=== PATIENT | male | born 1955 | race Caucasian/White ===

== ENCOUNTER 2022-10-11 00:40 | Day surgery (SDC) | payer OTHER, SELFPAY ==
[2022-10-03 10:01] VITALS: BMI 35.4
[2022-10-11 06:48] VITALS: BP 157/97; PULSE 18; RESP 18; TEMP 36.6; O2SAT 96
[2022-10-11 06:49] LABS: Glucose Point of Care 171 mg/dl (65-105)
[2022-10-11] MEDS: LACTATED RINGERS 1,000 ML 150 ML IV CONT (06:50)
--- NOTE | 2022-10-11 07:32 | WPDANESEPPF ---
Anes - Initial Pre Proc Eval Procedure: Operation Date: 10/11/22 08:00 Proposed Procedures p Screening Colonoscopy - Armin Portillo MD Date/Time: 10/11/22 07:32 Surgeon: Armin Portillo MD Pre Op Diagnosis: Hx of colon polyp Patient Data Age: 67 Gender: M Height: 1.75 m Weight: 105.6 kg Last Vital Signs Temp 36.6 C 10/11/22 06:48 Pulse 18 L 10/11/22 06:48 Resp 18 10/11/22 06:48 BP 157/97 H 10/11/22 06:48 Pulse Ox 96 10/11/22 06:48 O2 Del Method Room Air 10/11/22 06:48 Allergies Allergy/AdvReac Type Severity Reaction Status Date / Time No Known Allergies Allergy Verified 10/11/22 06:44 Home Medications Medication Instructions Recorded Confirmed Type fenofibrate 160 mg tablet 160 mg PO DAILY #90 tabs 02/27/22 10/11/22 Rx testosterone 20.25 mg/1.25 gram 1 pump topical DAILY #75 grams 02/27/22 10/11/22 Rx (1.62 %) transdermal gel pump metformin 500 mg tablet,extended 1,000 mg PO DAILY #180 tabs 05/01/22 10/11/22 Rx release 24 hr hydrochlorothiazide 12.5 mg tablet 12.5 mg PO DAILY #90 tabs 08/23/22 10/11/22 Rx allopurinol 300 mg tablet 300 mg PO DAILY 90 days #90 tabs 09/05/22 10/11/22 Rx insulin glargine 100 unit/mL (3 See Rx Instructions subcut 09/05/22 10/11/22 Rx mL) subcutaneous pen (Lantus .COMPLEX #45 mL Solostar U-100 Insulin) perindopril erbumine 8 mg tablet 16 mg PO DAILY 90 days #180 tabs 09/05/22 10/11/22 Rx atorvastatin 80 mg tablet 80 mg PO DAILY 90 days #90 tabs 09/08/22 10/11/22 Rx Laboratory Tests 10/11/22 06:46 POC Capillary Glucose 171 mg/dl H mg/dl (65-105) Patient hx anesthesia problems: none Family hx anesthesia problems: none Results Review: All pre-operative results and documents have been reviewed as part of the pre-operative evaluation. [facility] Family History Family History Mother Diabetes mellitus Alcoholism Sibling Alcoholism Diabetes mellitus Hypertension Father Hypertension Social History Social History Smoking status: Never smoker Second hand tobacco smoke exposure: No Alcohol intake: current Drinks per week: 12 Substance use: unknown Substance use type: does not use Lack of Transportation: No Lack of Food: Never True Current Housing: I Have Housing Concerned About Future Housing: No Difficulty Paying Gas/Electric Bills: No Difficulty Paying for Meds: YES Currently Unemployed: No Education: High School Diploma/GED Difficulty w/ Childcare or Family Care: No Living arrangements: alone Spiritual care concerns: No Anes - Eval Final PreProcedure Day of Procedure 10/11/22 07:32 Patient weight: obese Heart: regular rate and rhythm Lungs: clear to auscultation Airway: Mallampati scale class II Neurological: alert and oriented Last oral intake: >/= 8 hours ASA classification: III Emergent: no Anesthetic plan: proceed Anesthesia type and monitoring: general GIVS and standard monitoring Results Review: All pre-operative results and documents have been reviewed as part of the pre-operative evaluation. Informed Consent: The patient's anesthetic plan and its attendant risks and benefits were discussed with the patient/family/POA. Questions were solicited and answers provided to the satisfaction of the patient/family/POA.
--- NOTE | 2022-10-11 07:49 | PM.HPGS ---
History of Present Illness History of Present Illness Consent: Risks, benefits, and alternatives have been discussed and questions answered. Patient agrees to proceed with procedure. Chief complaint: Hx of colon polyp Narrative: Sohan Marshall is a 67 year old male with colon polyp 5 years ago Review of Systems Constitutional: Constitutional: Denies headache(s) and Denies weakness Eyes: Eyes: Denies blurry vision ENT: Reports Normal hearing present, Denies headache(s) and Denies neck pain Cardiovascular: Cardiovascular: Denies chest pain and Denies dyspnea Respiratory: Respiratory: Denies dyspnea Gastrointestinal: Gastrointestinal: Reports no additional gastrointestinal complaints Genitourinary: Genitourinary: Denies dysuria Musculoskeletal: Musculoskeletal: Denies neck pain Integumentary/Breasts: Skin/Breast: Denies dry skin Neurologic: Reports Normal hearing present, Denies headache(s) and Denies weakness Psychiatric: Psychiatric: Denies anxiety Endocrine: Endocrine: Denies change in body appearance Hematologic/Lymphatic: Hematologic/Lymphatic: Denies easy bleeding Allergic/Immunologic: Allergic/Immunologic: Denies urticaria PMFSH Past Medical History Medical History (Updated 10/11/22 @ 07:49 by Armin Portillo MD) Colon polyp Family History Family History Mother Diabetes mellitus Alcoholism Sibling Alcoholism Diabetes mellitus Hypertension Father Hypertension Social History Social History Smoking status: Never smoker Second hand tobacco smoke exposure: No Alcohol intake: current Drinks per week: 12 Substance use: unknown Substance use type: does not use Lack of Transportation: No Lack of Food: Never True Current Housing: I Have Housing Concerned About Future Housing: No Difficulty Paying Gas/Electric Bills: No Difficulty Paying for Meds: YES Currently Unemployed: No Education: High School Diploma/GED Difficulty w/ Childcare or Family Care: No Living arrangements: alone Spiritual care concerns: No Meds Home Medications and Allergies Home Medications Medication Instructions Recorded Confirmed Type fenofibrate 160 mg tablet 160 mg PO DAILY #90 tabs 02/27/22 10/11/22 Rx testosterone 20.25 mg/1.25 gram 1 pump topical DAILY #75 grams 02/27/22 10/11/22 Rx (1.62 %) transdermal gel pump metformin 500 mg tablet,extended 1,000 mg PO DAILY #180 tabs 05/01/22 10/11/22 Rx release 24 hr hydrochlorothiazide 12.5 mg tablet 12.5 mg PO DAILY #90 tabs 08/23/22 10/11/22 Rx allopurinol 300 mg tablet 300 mg PO DAILY 90 days #90 tabs 09/05/22 10/11/22 Rx insulin glargine 100 unit/mL (3 See Rx Instructions subcut 09/05/22 10/11/22 Rx mL) subcutaneous pen (Lantus .COMPLEX #45 mL Solostar U-100 Insulin) perindopril erbumine 8 mg tablet 16 mg PO DAILY 90 days #180 tabs 09/05/22 10/11/22 Rx atorvastatin 80 mg tablet 80 mg PO DAILY 90 days #90 tabs 09/08/22 10/11/22 Rx Allergies Allergy/AdvReac Type Severity Reaction Status Date / Time No Known Allergies Allergy Verified 10/11/22 06:44 Vital Signs Vital Signs - 24 hr 10/11/22 06:48 Temperature 97.8 F Pulse Rate 18 L Respiratory Rate 18 Blood Pressure 157/97 H Pulse Oximetry 96 Oxygen Delivery Room Air Exam Const: General: comfortable and no acute distress HENMT: Face/Nose/Sinus: Normal nares present Eyes: General: appearance normal, both eyes and all related structures Neck: Neck: no JVD Resp: Auscultation: clear to auscultation bilaterally Cardio: Rate: regular rate Rhythm: regular rhythm GI: Inspection: non-distended GI Palp: Yes Soft to palpation Skin: General skin exam: normal color Neuro: General: gait normal Speech: normal speech Extrem: General: normal to inspection Psych: Mental Status: mental status grossly normal Asses
[2022-10-11 08:11] VITALS: BP 110/72; PULSE 87; RESP 20; O2SAT 95
[2022-10-11 08:21] VITALS: BP 121/77; PULSE 80; RESP 17; O2SAT 95
[2022-10-11 08:31] VITALS: BP 139/79; PULSE 81; RESP 22; O2SAT 96
== END 2022-10-11 08:39 | disposition home or self-care (01) ==
PROVIDERS: PCP Physician Assistant; Visit Provider Internal Medicine Gastroenterology
PROC: 0DJD8ZZ Inspection of Lower Intestinal Tract, Via Natural or Artificial Opening Endoscopic (ICD-10-PCS; CPT 45378; principal; 2022-10-11 08:00)
DX: Z12.11 Encounter for screening for malignant neoplasm of colon (principal); D12.3 Benign neoplasm of transverse colon; K57.30 Diverticulosis of large intestine without perforation or abscess without bleeding; K64.8 Other hemorrhoids; Z79.4 Long term (current) use of insulin; Z79.84 Long term (current) use of oral hypoglycemic drugs; E66.9 Obesity, unspecified; Z68.34 Body mass index [BMI] 34.0-34.9, adult
CPT/HCPCS: 45385; 82948; 88305; J2704; J7120

== ENCOUNTER 2024-09-03 00:12 | Day surgery (SDC) | payer OTHER, SELFPAY ==
[2024-08-26 11:51] VITALS: BMI 36.3
--- NOTE | 2024-08-26 12:29 | PC.NURSE ---
Report to the Outpatient Waiting Room, entrance under the green pavilion located off [facility], at time 6 AM on date _09/03/24 . Planned Procedure Time: __7:30 AM .? Time changes happen often and if your time is changed the preop area will call you the afternoon before. - You and your visitor will be asked to self-screen and do not enter if you have any COVID symptoms. Please call surgeon if you need to reschedule. - A mask is optional within the hospital at this time. Patients may have clear liquids (water, carbonated beverages, clear teas, apple juice) until 3 hours prior to surgery( 4:30 AM) with a maximum of 20 ounces. - No food from midnight until time of surgery and no smoking - Infants may have breast milk until 4 hours before surgery, infant formula 6 hours prior to surgery. - Children will be allowed to drink immediately following surgery.? If applicable, please bring a bottle or sippy cup to assist with drinking. Juice, water, soda, and popsicles are readily available.? For infants on formula, please bring formula the day of surgery.? Pacifiers are allowed. Take only the following medications with a SIP of water on the morning of surgery: _NONE DO NOT STOP ANY OF YOUR OTHER PRESCRIPTION MEDICATIONS PRIOR TO SURGERY EXCEPT THE FOLLOWING Medications to discontinue per physician __HOLD ALL VITAMINS AND SUPPLEMENTS 3 DAYS PRE OP. Date to take last dose__08/30/24 MAY TAKE TYLENOL IF NEEDED FOR PAIN Please no make-up, nail trinidadian, hairspray, perfume, deodorant, or body powder the day of surgery.? No jewelry (including any body piercings) or valuables the day of surgery, leave them at home.? Please take a shower or bath the night before, or the morning of, surgery with an antibacterial soap.? Wear comfortable, loose fitting clothing.? Children are encouraged to wear pajamas. - Jewelry must be removed prior to entering the operating room.? Rings and piercings that are not removed may be cut off. - The hospital will not accept responsibility for valuables.? - Please leave all valuables, including medications, at home the day of surgery. If you are going home after surgery, a licensed straddle truck driver must drive you home.? - NO public transportation without another adult if you receive anesthesia. - We recommend that an adult stay with you for 24 hours following discharge. - We also recommend that you do not drive, make important decision, drink alcoholic beverages, or take any drugs that were not prescribed by your health care provider for at least 24 hours after your discharge time. Follow any additional instructions given to you from your surgeon. VERBAL AND WRITTEN instructions given to _PATIENT AND SISTER RICKY and asked if any additional questions and then verbalized understanding. Patient advised to call surgeon office or pre surgery nurse liaison [phone] if any additional questions.
[2024-08-26 12:52] VITALS: BP 157/73; PULSE 65; RESP 18; TEMP 37.2; O2SAT 97
--- NOTE | 2024-09-02 07:19 | PM.IMHP ---
H&P: HPI History of Present Illness Date/Time: 09/02/24 07:19 Chief Complaint: Patient is the painful right knee due to osteoarthritis. She would like to consider knee replacement surgery she has failed conservative treatment. Review of Systems Musculoskeletal: Musculoskeletal: Reports arthralgias, Reports joint swelling and Reports stiffness PMFSH Past Medical History Medical History Colon polyp Diabetes mellitus Gout High cholesterol Hypertension Surgical History Surgical History History of cholecystectomy Family History Family History Mother Diabetes mellitus Alcoholism Sibling Alcoholism Diabetes mellitus Hypertension Father Hypertension Social History Social History Smoking status: Never smoker Second hand tobacco smoke exposure: No Additional smoking assessment comments: DENIES ANY FORM OF TOBACCO USE Alcohol intake: current Drinks per week: 12 Alcohol use details: BEER Substance use: unknown Substance use type: does not use Do You Feel Safe in your Home?: Yes Lack of Transportation: No Lack of Food: Never True Current Housing: I Have Housing Concerned About Future Housing: No Difficulty Paying Gas/Electric Bills: No Difficulty Paying for Meds: No Currently Unemployed: No Education: High School Diploma/GED Difficulty w/ Childcare or Family Care: No Living arrangements: alone Occupation/Education: retired Gender identity (if verbalized by the patient): Male Spiritual care concerns: No Meds Home Medications and Allergies Home Medications Medication Instructions Recorded Confirmed Type hydrochlorothiazide 12.5 mg tablet 12.5 mg PO DAILY #90 tabs 01/31/24 08/26/24 Rx fenofibrate 160 mg tablet 160 mg PO DAILY #90 tabs 02/05/24 08/26/24 Rx testosterone 1 pump topical DAILY #75 grams 02/11/24 08/26/24 Rx allopurinol 300 mg tablet 300 mg PO DAILY #90 tabs 02/17/24 08/26/24 Rx insulin glargine-yfgn 100 unit/mL 55 unit (0.55 mL) subcut QPM #50 mL 03/12/24 08/26/24 Rx (3 mL) subcutaneous pen (Semglee (insulin glargine-yfgn) Pen) metformin 500 mg tablet,extended 1,000 mg PO DAILY #180 tabs 04/17/24 08/26/24 Rx release 24 hr perindopril erbumine 8 mg tablet 16 mg PO DAILY #180 tabs 07/29/24 08/26/24 Rx semaglutide 0.25 mg or 0.5 mg (2 0.25 mg or 0.5 mg (2 mg/3 mL) Pen 08/13/24 08/26/24 Sample mg/3 mL) subcutaneous pen injector Injector#4 Samples (Ozempic) atorvastatin 80 mg tablet 80 mg PO DAILY #90 tabs 08/15/24 08/26/24 Rx acetaminophen 500 mg capsule 1,000 mg PO PRN PRN Pain 08/26/24 08/26/24 History ascorbic acid (vitamin C) 1,000 mg 1 g PO DAILY 08/26/24 08/26/24 History capsule Allergies Allergy/AdvReac Type Severity Reaction Status Date / Time No Known Allergies Allergy Verified 08/26/24 11:52 Exam Narrative: And range of motion of his knee from about 3-110 degrees grinding crepitus and pain varus deformity. Walks with an antalgic gait. Assessment and Plan Assessment and plan (1) Osteoarthritis of knees, bilateral: Code(s): M17.0 - Bilateral primary osteoarthritis of knee Status: Acute Assessment and Plan: Patient has osteoarthritis of his right knee. He has failed conservative treatment like to consider knee replacement surgery. We discussed treatment options in detail risks benefits limitations and alternatives. He understands and agrees will proceed per his request discussed.
[2024-09-03] VITALS (14 sets, daily range): BP systolic 145–177; BP diastolic 78–90; PULSE 68–86; RESP 11–18; TEMP 35.8–36.6; O2SAT 94–100
--- NOTE | ~2024-09-03 | XR_ITS ---
EXAMINATION: [id number] DATE: 09/03/2024 10:02 INDICATION: Postoperative evaluation following right total knee arthroplasty. TECHNIQUE: Anteroposterior and lateral views of the right knee were obtained. COMPARISON: None. FINDINGS: Right total knee arthroplasty with patellar resurfacing appears well seated and in near anatomic alig nment. No fractures identified. Anterior skin desmond and expected postoperative subcutaneous and in tra-articular gas. IMPRESSION: 1. Right total knee arthroplasty, negative for postoperative purposes. Reviewed, dictated and finalized at location [facility]
[2024-09-03] MEDS: LACTATED RINGERS 1,000 ML 30 ML IV CONT ×2 (06:30→09:50)
[2024-09-03] MEDS: ACETAMINOPHEN 500 MG TABLET 1000 MG PO (06:30)
[2024-09-03] MEDS: TRANEXAMIC ACID 1,000MG/ISO100 1,000 MG/100 ML BAG 200 MG IVPB (06:30)
--- NOTE | 2024-09-03 06:34 | WPDHPUPDATE1 ---
History and Physical Update Update Date/Time: 09/03/24 06:34 History and Physical has been reviewed, including an updated exam of the patient. There are NO changes in the patient's condition. Risks, benefits, and alternatives have been discussed and questions answered. Patient agrees to proceed with procedure.
[2024-09-03 06:49] LABS: Glucose Point of Care 123 mg/dl (65-105)
[2024-09-03] MEDS: VANCOMYCIN 1,500 MG/NS 500 ML 1,500 MG/500 ML BAG 250 MG IVPB (07:00)
--- NOTE | 2024-09-03 07:04 | P.PNAN_ITS ---
Anes - Initial Pre Proc Eval Procedure: Operation Date: 09/03/24 07:30 Proposed Procedures p Right Total Knee Arthroplasty - Sunny Mercado MD Date/Time: 09/03/24 07:04 Surgeon: Sunny Mercado MD Pre Op Diagnosis: OA right knee Patient Data Age: 69 Gender: M Height: 1.71 m Weight: 107 kg Last Vital Signs Temp 98.9 F 08/26/24 12:52 Pulse 65 08/26/24 12:52 Resp 18 08/26/24 12:52 BP 157/73 H 08/26/24 12:52 Pulse Ox 97 08/26/24 12:52 O2 Del Method Room Air 08/26/24 12:52 Allergies Allergy/AdvReac Type Severity Reaction Status Date / Time No Known Allergies Allergy Verified 09/03/24 06:50 Home Medications Medication Instructions Recorded Confirmed Type hydrochlorothiazide 12.5 mg tablet 12.5 mg PO DAILY #90 tabs 01/31/24 09/03/24 Rx fenofibrate 160 mg tablet 160 mg PO DAILY #90 tabs 02/05/24 09/03/24 Rx testosterone 1 pump topical DAILY #75 grams 02/11/24 09/03/24 Rx allopurinol 300 mg tablet 300 mg PO DAILY #90 tabs 02/17/24 09/03/24 Rx insulin glargine-yfgn 100 unit/mL 55 unit (0.55 mL) subcut QPM #50 mL 03/12/24 09/03/24 Rx (3 mL) subcutaneous pen (Semglee (insulin glargine-yfgn) Pen) metformin 500 mg tablet,extended 1,000 mg PO DAILY #180 tabs 04/17/24 09/03/24 Rx release 24 hr perindopril erbumine 8 mg tablet 16 mg PO DAILY #180 tabs 07/29/24 09/03/24 Rx semaglutide 0.25 mg or 0.5 mg (2 0.25 mg or 0.5 mg (2 mg/3 mL) Pen 08/13/2408/22 Sample mg/3 mL) subcutaneous pen injector Injector#4 Samples (Ozempic) atorvastatin 80 mg tablet 80 mg PO DAILY #90 tabs 08/15/24 09/03/24 Rx acetaminophen 500 mg capsule 1,000 mg PO PRN PRN Pain 08/26/24 09/03/24 History ascorbic acid (vitamin C) 1,000 mg 1 g PO DAILY 08/26/24 09/03/24 History capsule Laboratory Tests 09/03/24 06:35 POC Capillary Glucose 123 H mg/dl (65-105) Patient hx anesthesia problems: none Family hx anesthesia problems: none Results Review: All pre-operative results and documents have been reviewed as part of the pre- operative evaluation. [facility] Past Medical History Medical History Colon polyp Diabetes mellitus Gout High cholesterol Hypertension Surgical History Surgical History History of cholecystectomy Family History Family History Mother Diabetes mellitus Alcoholism Sibling Alcoholism Diabetes mellitus Hypertension Father Hypertension Social History Social History Smoking status: Never smoker Second hand tobacco smoke exposure: No Additional smoking assessment comments: DENIES ANY FORM OF TOBACCO USE Alcohol intake: current Drinks per week: 12 Alcohol use details: BEER Substance use: unknown Substance use type: does not use Do You Feel Safe in your Home?: Yes Lack of Transportation: No Lack of Food: Never True Current Housing: I Have Housing Concerned About Future Housing: No Difficulty Paying Gas/Electric Bills: No Difficulty Paying for Meds: No Currently Unemployed: No Education: High School Diploma/GED Difficulty w/ Childcare or Family Care: No Living arrangements: alone Occupation/Education: retired Gender identity (if verbalized by the patient): Male Spiritual care concerns: No Anes - Eval Final PreProcedure Day of Procedure 09/03/24 07:04 Patient weight: obese Heart: regular rate and rhythm Lungs: clear to auscultation Airway: Mallampati scale class II and special considerations (Missing teeth in posterior lower aspect. Underbite appreciated. ) Neurological: alert and oriented Last oral intake: >/= 8 hours ASA classification: III Emergent: no Anesthetic plan: proceed Anesthesia type and monitoring: general ETT and standard monitoring Results Review: All pre-operative results and documents have been reviewed as part of the pre- operative evaluation. HTN, hyperlipidemia, CKD stage 2, DM. Informed Consent: The patient's anesthetic plan and its attendant risks and benefits were discussed with the patient/family/POA. Questions were solicited and answers provided to the satisfaction of the patient/family/POA.
[2024-09-03] MEDS: ceFAZolin 2 GM/D5W 50 ML 2 GM/50 ML BAG IVPB ×3 (07:45→23:50)
[2024-09-03] MEDS: SODIUM CHLORIDE 0.9% IV 37.7 ML, MORPHINE SULFATE INJ (*CRX) 2 MG, ROPivacaine HCL 1% 2... INFILTRATE (08:05)
--- NOTE | 2024-09-03 09:06 | WPDANESPNB ---
Anes - Peripheral Nerve Block Date/Time: 09/03/24 09:06 I have discussed with the patient/family/POA the placement of a peripheral nerve block for post-operative pain management, including associated risks, benefits, complications, and side effects. Alternative methods of post-operative analgesia were detailed. Questions were solicited and answers provided to the satisfaction of the patient/family/POA. Time-Out: A pre-procedural Time-Out was completed immediately before starting the procedure and confirmed: Patient Identification, Site, Procedure, Patient Position and the Availability of Requisite Equipment. Clinical Indications: Acute post-operative pain management requested by the operative surgeon. Nerve Block Insertion Note Anes-nerve block: adductor canal right Patient position: supine Skin prep: chlorhexidine Needle: 22 gauge, stimulating, insulated echogenic needle. Needle length: 80 mm Injectate: other (Bupiv 0.5% 15 mls. ) Observations: tolerated well Complications: none Procedure start time:: 722 Procedure end time:: 728
[2024-09-03] MEDS: TRANEXAMIC ACID 1,000 MG/10 ML AMPUL 1000 MG IV PUSH (09:10)
[2024-09-03] MEDS: ceFAZolin SODIUM 1 GM VIAL 2 GM IV PUSH (09:11)
--- NOTE | 2024-09-03 09:17 | W.PM.PROC2 ---
Procedure Note - Detailed Date of Procedure 09/03/24 Pre-op Diagnosis Osteoarthritis right knee Post-op Diagnosis Same Procedure Performed RIGHT total knee arthroplasty Surgeon Sunny Mercado MD Anesthesia General Indications Pain and Arthritis Description of Procedure The patient was brought to operating room #7. A general anesthetic was administered. Placed on the operating table and sterilely prepped and draped in usual manner. A longitudinal incision was made. Tourniquet inflated to 300 mmHg for a total of 50 minutes. Dissection was carried down to the fascia. Medial parapatellar incision was made and the patella subluxated laterally. Patella cut from 25 to 15 mm and sized for a 37 mm button. The tibia was cut perpendicular to the long axis and femur cut in 5 degrees of valgus. An extra 2 mm of Femur was removed because of the flexion contracture. A 65 femur trialed. 71 tibia was felt to fit the best. The soft tissues balanced, hemostasis obtained. All [address], 71 tibia, 65 femur, 37 mm patella, and 10 mm poly. Motion was 0-125 degrees with good stability in both flexion and extension. The wound was closed with #2 Vicryl, 2-0 Vicryl and desmond. [employer] Estimated Blood Loss 200 Drains No Packing No Pathology None sent Complications No immediate complications Condition Stable Disposition PACU [facility] Billing Surgery - Charge Forward: Surgery Billing ([id number] TKA)
[2024-09-03] MEDS: fentaNYL CITRATE INJ (*CRX) 100 MCG/2 ML VIAL 25 MCG IV PUSH ×4 (10:25→10:35)
[2024-09-03 11:26] LABS: Glucose Point of Care 175 mg/dl (65-105)
[2024-09-03] MEDS: SODIUM CHLORIDE 0.9% IV 1,000 ML 125 ML IV CONT (11:53)
--- NOTE | 2024-09-03 11:57 | ADMGEN ---
This patient, Sohan Marshall, was admitted to 3 [facility] Surg Room 315-02. Patient/family oriented to hospital policies and general routines including ID bracelet, bed and alarms, visiting hours, pain management, procedures, bathroom and other care routines, personal items, smoking policy, room service/diet, and visiting hours. Information on how to activate the Rapid Response Team has been discussed. Patient/Family are encouraged to report perceived risks to care and to ask questions if they do not understand what they are told or what they should do.
[2024-09-03 12:01] LABS: Glucose Point of Care 186 mg/dl (65-105)
[2024-09-03] MEDS: traMADol HCL (*CRX) 50 MG TABLET PO ×2 (12:02→20:33)
--- NOTE | 2024-09-03 15:31 | P.CONIM_ITS ---
Assessment and Plan Assessment and plan (1) Diabetes mellitus: Qualifiers: Diabetes mellitus type: type 2 Diabetes mellitus penitentiary insulin use: with penitentiary use Diabetes mellitus complication status: with hyperglycemia Qualified Code(s): E11.65 - Type 2 diabetes mellitus with hyperglycemia; Z79.4 - watermaster (current) use of insulin Code(s): E11.9 - Type 2 diabetes mellitus without complications Status: Acute (2) Osteoarthritis of knees, bilateral: Code(s): M17.0 - Bilateral primary osteoarthritis of knee Status: Acute (3) Essential (primary) hypertension: Code(s): I10 - Essential (primary) hypertension Status: Acute Assessment and Plan: Hypertension with elevated blood pressure Blood pressure 165/85 Restart home medication and monitor Type 2 diabetes Continue Lantus 55 units daily and sliding scale insulin with Accu-Cheks. Lipitor. Severe osteoarthritis right knee Status post total knee replacement Continue p.r.n. pain control Prophylactic anticoagulation per Orthopedic DVT prophylaxis on rivaroxaban Patient is full code Surrogate decisionmaker is sister Cherie Pires [facility] Date of Consult Consult date: 09/03/24 Requesting Physician: Sunny Mercado MD Primary Care Provider: Jonny Block APRN Consult Narrative Reason for consult: Medical management. Narrative: Sohan Marshall is a 69 year old male with past medical history of hypertension, type 2 diabetes hyperlipidemia who was admitted directly today for right total knee replacement. Patient reported that he underwent outpatient workup when was admitted to the hospital today for total knee replacement. He has already undergone procedure. Denies any chest pain shortness over nausea vomiting abdominal pain no diarrhea no dysuria no focal symptoms prior to admission. And added time of this enc ounter patient was asymptomatic and denies any symptoms. Vital signs notable for temperature 96.6?, pulse rate 72, respiratory rate 18, blood pressure 165/85. Review of Systems Review of Systems: All other systems reviewed and negative except for the history above. [facility] Past Medical History Medical History Colon polyp Diabetes mellitus Gout High cholesterol Hypertension Surgical History Surgical History History of cholecystectomy Family History Family History Mother Diabetes mellitus Alcoholism Sibling Alcoholism Diabetes mellitus Hypertension Father Hypertension Social History Social History Smoking status: Never smoker Second hand tobacco smoke exposure: No Additional smoking assessment comments: DENIES ANY FORM OF TOBACCO USE Alcohol intake: current Drinks per week: 12 Alcohol use details: BEER Substance use: unknown Substance use type: does not use Do You Feel Safe in your Home?: Yes Lack of Transportation: No Lack of Food: Never True Current Housing: I Have Housing Concerned About Future Housing: No Difficulty Paying Gas/Electric Bills: No Difficulty Paying for Meds: No Currently Unemployed: No Education: High School Diploma/GED Difficulty w/ Childcare or Family Care: No Living arrangements: alone Occupation/Education: retired Gender identity (if verbalized by the patient): Male Spiritual care concerns: No Meds Home Medications and Allergies Home Medications Medication Instructions Recorded Confirmed Type hydrochlorothiazide 12.5 mg tablet 12.5 mg PO DAILY #90 tabs 01/31/24 09/03/24 Rx fenofibrate 160 mg tablet 160 mg PO DAILY #90 tabs 02/05/24 09/03/24 Rx testosterone 1 pump topical DAILY #75 grams 02/11/24 09/03/24 Rx allopurinol 300 mg tablet 300 mg PO DAILY #90 tabs 02/17/24 09/03/24 Rx insulin glargine-yfgn 100 unit/mL 55 unit (0.55 mL) subcut QPM #50 mL 03/12/24 09/03/24 Rx (3 mL) subcutaneous pen (Semglee (insulin glargine-yfgn) Pen) metformin 500 mg tablet,extended 1,000 mg PO DAILY #180 tabs 04/17/24 09/03/24 Rx release 24 hr perindopril erbumine 8 mg tablet 16 mg PO DAILY #180 tabs 07/29/24 09/03/24 Rx semaglutide 0.25 mg or 0.5 mg (2 0.25 mg or 0.5 mg (2 mg/3 mL) Pen 08/13/24 09/03/24 Sample mg/3 mL) subcutaneous pen injector Injector#4 Samples (Ozempic) atorvastatin 80 mg tablet 80 mg PO DAILY #90 tabs 08/15/24 09/03/24 Rx acetaminophen 500 mg capsule 1,000 mg PO PRN PRN Pain 08/26/24 09/03/24 History ascorbic acid (vitamin C) 1,000 mg 1 g PO DAILY 08/26/24 09/03/24 History capsule Allergies Allergy/AdvReac Type Severity Reaction Status Date / Time No Known Allergies Allergy Verified 09/03/24 06:50 Vital Signs Vital Signs - 24 hr 09/03/24 06:30 09/03/24 09:50 09/03/24 10:05 Temperature 97.8 F 97.7 F Pulse Rate 70 86 76 Respiratory Rate 14 18 Blood Pressure 148/81 H 152/79 H 163/78 H Pulse Oximetry 98 95 100 Oxygen Delivery Room Air Simple Face Mask Simple Face Mask Oxygen Flow Rate 8 8 09/03/24 10:20 09/03/24 10:35 09/03/24 10:50 Temperature Pulse Rate 75 72 72 Respiratory Rate 13 11 L 18 Blood Pressure 164/84 H 149/90 H 156/88 H Pulse Oximetry 94 94 94 Oxygen Delivery Room Air Room Air Room Air Oxygen Flow Rate 09/03/24 11:02 09/03/24 12:35 09/03/24 13:27 Temperature Pulse Rate 80 Respiratory Rate 17 Blood Pressure 162/88 H Pulse Oximetry 96 Oxygen Delivery Room Air Room Air Room Air Oxygen Flow Rate 09/03/24 11:05 09/03/24 11:20 09/03/24 11:50 Temperature 97.4 F L 96.6 F L 96.8 F L Pulse Rate 72 72 73 Respiratory Rate 18 18 18 Blood Pressure 161/86 H 165/85 H 159/86 H Pulse Oximetry 97 97 99 Oxygen Delivery Oxygen Flow Rate 09/03/24 12:50 Temperature 96.5 F L Pulse Rate 72 Respiratory Rate 18 Blood Pressure 159/86 H Pulse Oximetry 99 Oxygen Delivery Oxygen Flow Rate Exam Narrative: General: alert and comfortable Eyes: EOMI, PERRLA ENNT External ears normal, Neck is supple, no masses, Respiratory systems: Clear to auscultation Cardiovascular S1, S2, normal rhythm, no murmur, rub, or gallop; no thrill or palpable murmurs on palpation. Gastrointestinal: soft, non-tender, and non-distended abdomen with no masses; BS present Skin: Right knee wound dressing clean and dry. Musculoskeletal: no abnormality and no tenderness, normal ROM Neurologic: Alert and oriented x3, non focal Mental Status Exam: normal affect Hospitalist MIPS Advance Care Plan I have confirmed that the patient's Advanced Care Plan is present, code status is documented, or surrogate decision maker is listed in patient medical record.: Yes Medication Reconciliation I have utilized all available resources to obtain, update and review the patients current medications (includes all prescriptions, OTC, herbals, cannabis, and nutritional supplements).: Yes
[2024-09-03] MEDS: RIVAROXABAN 10 MG TABLET PO (15:56)
[2024-09-03] MEDS: SENNA/DOCUSATE SODIUM TABLET 2 TAB PO (15:56)
[2024-09-03] MEDS: CELECOXIB 200 MG CAPSULE PO (15:56)
[2024-09-03] MEDS: lisinopriL 20 MG TABLET 40 MG PO (15:57)
[2024-09-03 16:27] LABS: Glucose Point of Care 220 mg/dl (65-105)
[2024-09-03] MEDS: INSULIN GLARGINE (*BKC) 100 UNITS/ML 55 UNITS SUB-Q (17:39)
[2024-09-03 21:04] LABS: Glucose Point of Care 220 mg/dl (65-105)
[2024-09-04] MEDS: traMADol HCL (*CRX) 50 MG TABLET PO (03:19)
[2024-09-04 04:47] VITALS: BP 144/78; PULSE 67; RESP 16; TEMP 36.4; O2SAT 98
--- NOTE | 2024-09-04 06:48 | P.PNOP_ITS ---
Progress Note: A&P Assessment and Plan (1) History of knee replacement procedure of right knee: Code(s): Z96.651 - Presence of right artificial knee joint Status: Acute Assessment and Plan: Patient underwent total knee arthroplasty right. Overall he has progressed in a reasonable manner. Will ambulate today. If he is doing well, will discharge this afternoon. Follow-up 2 weeks. Subjective Subjective Date/Time Seen: 09/04/24 06:48 Post Op day: 1 Principal diagnosis: Right knee replacement for osteoarthritis Review of Systems Review of Systems: All other systems reviewed and negative except for the history above. Exam Narrative: Patient's dressing is intact. He is wiggling his toes. He is able ambulate. Resp: Effort & Inspection: normal respiratory effort Cardio: Rate: regular rate Rhythm: regular rhythm Objective Data Vital Signs Vital Signs: Vital Signs - 24 hr 09/03/24 09:50 09/03/24 10:05 09/03/24 10:20 Temperature 97.7 F Pulse Rate 86 76 75 Respiratory Rate 18 13 Blood Pressure 152/79 H 163/78 H 164/84 H Pulse Oximetry 95 100 94 Oxygen Delivery Simple Face Mask Simple Face Mask Room Air Oxygen Flow Rate 8 8 09/03/24 10:35 09/03/24 10:50 09/03/24 11:02 Temperature Pulse Rate 72 72 80 Respiratory Rate 11 L 18 17 Blood Pressure 149/90 H 156/88 H 162/88 H Pulse Oximetry 94 94 96 Oxygen Delivery Room Air Room Air Room Air Oxygen Flow Rate 09/03/24 12:35 09/03/24 13:27 09/03/24 11:05 Temperature 97.4 F L Pulse Rate 72 Respiratory Rate 18 Blood Pressure 161/86 H Pulse Oximetry 97 Oxygen Delivery Room Air Room Air Oxygen Flow Rate 09/03/24 11:20 09/03/24 11:50 09/03/24 12:50 Temperature 96.6 F L 96.8 F L 96.5 F L Pulse Rate 72 73 72 Respiratory Rate 18 18 18 Blood Pressure 165/85 H 159/86 H 159/86 H Pulse Oximetry 97 99 99 Oxygen Delivery Oxygen Flow Rate 09/03/24 16:50 09/03/24 20:50 09/03/24 23:41 Temperature 97.8 F 97.7 F 97.7 F Pulse Rate 79 74 68 Respiratory Rate 18 16 16 Blood Pressure 177/85 H 149/90 H 145/78 H Pulse Oximetry 98 100 100 Oxygen Delivery Oxygen Flow Rate 09/04/24 04:47 Temperature 97.5 F L Pulse Rate 67 Respiratory Rate 16 Blood Pressure 144/78 H Pulse Oximetry 98 Oxygen Delivery Oxygen Flow Rate Intake/Output Intake/Output: Intake & Output 09/01/24 09/02/24 09/03/24 09/04/24 23:59 23:59 23:59 23:59 Intake Total 980 450 Balance 980 450 Meds/Results Medications: Active Medications Generic Name Dose Route Start Last Admin Trade Name Freq PRN Reason Stop Dose Admin Hydrocodone Bitart/Acetaminophen 1 tab 09/03/24 11:05 Hydrocodone/Acetaminophen (*Crx) 5-325 Mg Tablet PO Q4H PRN Pain Rated 4-6 Hydrocodone Bitart/Acetaminophen 1 tab 09/03/24 11:05 Hydrocodone/Acetaminophen (*Crx) 7.5-325 Mg Tablet PO Q4H PRN Pain Rated 7-10 Allopurinol 300 mg 09/04/24 09:00 Allopurinol 300 Mg Tablet PO DAILY [facility] Atorvastatin Calcium 80 mg 09/04/24 09:00 Atorvastatin 40 Mg Tablet PO DAILY [facility] Celecoxib 200 mg 09/03/24 17:00 09/03/24 15:56 Celecoxib 200 Mg Capsule PO 200 mg BIDWM [facility] Administration Cyclobenzaprine HCl 10 mg 09/03/24 11:05 Cyclobenzaprine Hcl 10 Mg Tablet PO Q8H PRN Spasms Diphenhydramine HCl 25 mg 09/03/24 11:05 Diphenhydramine Hcl Inj 50 Mg/Ml Vial IV PUSH Q6H PRN Itching Hydrochlorothiazide 12.5 mg 09/04/24 09:00 Hydrochlorothiazide 12.5 Mg Capsule PO DAILY [facility] Hydromorphone HCl 1 mg 09/03/24 11:05 Hydromorphone Hcl Inj (*Crx) 1 Mg/Ml Syr IV PUSH Q2H PRN Breakthrough Pain Rated 7-10 or NPO Hydromorphone HCl 0.5 mg 09/03/24 11:05 Hydromorphone Hcl Inj (*Crx) 1 Mg/Ml Syr IV PUSH Q2H PRN Breakthrough Pain Rated 4-6 or NPO Cefazolin Sodium 2 gm in 50 mls @ 100 mls/hr 09/03/24 16:00 11/14/24 00:20 Ancef 2 Gm/D5w 50 Ml IVPB 09/04/24 08:29 Infused Q8H [facility] Infusion Insulin Glargine 55 units 09/03/24 18:00 09/03/24 17:39 Insulin Glargine (*Bkc) 100 Units/Ml SUB-Q 55 units QPM [facility] Administration Lisinopril 40 mg 09/03/24 16:00 09/03/24 15:57 Lisinopril 20 Mg Tablet PO 40 mg QAM [facility] Administration Naloxone HCl 0.1 mg 09/03/24 11:05 Naloxone Hcl 0.4 Mg/Ml Vial IV PUSH Q2M PRN Opiate Reversal Ondansetron HCl 4 mg 09/03/24 11:05 Ondansetron Inj 4 Mg/2 Ml Vial IV PUSH Q4H PRN Nausea And Vomiting Polyethylene Glycol 17 gm 09/04/24 09:00 Polyethylene Glycol 3350 17 Gm Powd.Pack PO QAM [facility] Rivaroxaban 10 mg 09/03/24 17:00 09/03/24 15:56 Rivaroxaban 10 Mg Tablet PO 09/14/24 17:01 10 mg DAILY@17 [facility] Administration Senna/Docusate Sodium 2 tab 09/03/24 17:00 09/03/24 15:56 Senna/Docusate Sodium Tablet PO 2 tab BID [facility] Administration Tramadol HCl 50 mg 09/03/24 11:05 09/04/24 03:19 Tramadol Hcl (*Crx) 50 Mg Tablet PO 50 mg Q4H PRN Administration Pain Rated 1-3 Radiology Results: ITS Impressions Knee X-Ray 09/03/24 10:12 IMPRESSION: 1. Right total knee arthroplasty, negative for postoperative purposes. Labs Labs: Laboratory Results - last 24 hr 09/03/24 09/03/24 09/03/24 06:35 10:36 11:40 POC Capillary Glucose 123 H 175 H 186 H 09/03/24 09/03/24 16:14 20:25 POC Capillary Glucose 220 H 220 H
--- NOTE | 2024-09-04 06:51 | PM.DS ---
DS: Admitting Diagnosis Discharge Date 09/04/2024 Admitting Diagnosis Osteoarthritis right knee DS: Discharge Diagnosis Discharge Diagnosis (1) History of knee replacement procedure of right knee: Code(s): Z96.651 - Presence of right artificial knee joint Status: Acute Assessment and Plan: Patient underwent total knee arthroplasty for osteoarthritis of his right knee. He has done reasonably postoperatively could be dismissed home today. He is walking with a walker. DS: Summary Hospital Course Hospital Course: Patient underwent total knee arthroplasty for osteoarthritis. He failed conservative treatment. He had a flexion contracture before surgery, which was corrected. Overall he is able ambulate now with a walker. Neurologically appears to be intact. His dressing is intact. He can be dismissed today. Status at Discharge Functional status at discharge: uses cane/walker Time Spent with Patient Time attestation: Total time spent providing and/or coordinating discharge services: Exam Narrative: On exam his dressing is intact. He can wiggle his toes. He is able ambulate. He has moderate pain. DS: Data Data Completed and Pending Labs on day of discharge: Labs from last 24 hours 09/03/24 09/03/24 09/03/24 20:25 16:14 11:40 POC Capillary Glucose 220 H 220 H 186 H 09/03/24 10:36 POC Capillary Glucose 175 H Discharge Plan Discharge Patient Disposition: Home, Self-Care Discharge Instructions: Dr. Sunny Mercado M.D [facility] [address] [address] POST-OPERATIVE DISCHARGE INSTRUCTIONS TOTAL KNEE ARTHROPLASTY 1. When resting, do not rest in the chair.When resting, lie on your back, with back flat on the couch or bed, with leg elevated above heart to minimize swelling. You may put a pillow under your head. . Significant swelling could indicate a blood clot and if this occurs call the office (or go to the ER) to have a venous ultrasound. Therefore, do not rest in a chair. 2. At least five times a day spend several minutes stretching your knee into flexion while sitting in the chair and also stretching your knee out straight The abilities to bend your knee fulling and straighten your knee fully are two most important knee functions to focus on during your recovery. 3. It is ok to sit in chair to eat, use the toilet and receive a guest and to do your stretching exercises, but, sitting in a chair will cause your leg to swell. Therefore, avoid additional time sitting in the chair. and don't rest in the chair. 4. Wound Care: Nursing will give you an additional Mepilex dressing at the time of discharge. Patient to remove the dressing and apply a new Mepilex dressing at home 7 days after surgery and leave the dressing on until seen in office. 5. May shower with a Mepilex dressing in place.The water will run off the dressing. 6. Unless you are told otherwise, you may put full weight on your operated leg. Use a walker for balance and practice walking as normally as you can, ideally for a few minutes every hour while you are awake. 7. I would advise against putting ice packs on your knee incision. Ice constricts blood flow which can impar healing of the knee incision. IMPORTANT: Remember not to sit in the chair for more than 30 minutes at a time. As a rule, during the first 14 days after surgery, only sit in the chair to work on the chair knee bending stretch exercise, for meals or for use of the restroom. Sitting in the chair promotes significant swelling in the knee and leg which will make your knee stiff and more painful and which simulates having a blood clot in the veins of the leg. If this type of significant diffuse swelling occurs, an ultrasound at the hospital will be necessary to rule out a blood clot. Be up walking around with the walker for a few minutes every hour while awake and then rest laying on your back on the couch or in bed with your leg elevated on cushions or pillows. Do not rest in the chair. Stand Alone Forms: General Discharge Instructions Follow-up/Referrals: Sunny Mercado MD [Physician] - Discharge Medications: New doxycycline hyclate 100 mg tablet 100 mg PO DAILY Qty: 10 0RF hydrocodone-acetaminophen 7.5-325 mg tablet 1 tablet PO Q4H PRN (Reason: pain) Qty: 40 0RF cyclobenzaprine 10 mg tablet 10 mg PO HS PRN (Reason: muscle spasm) Qty: 30 0RF Xarelto 10 mg tablet 10 mg PO DAILY Qty: 10 0RF Rx Instructions: for 35 days Xarelto 10 mg tablet 10 mg PO DAILY Qty: 10 0RF Rx Instructions: for 35 days Continued Ozempic 0.25 mg or 0.5 mg (2 mg/3 mL) pen injector 0.5 mg subcut WEEKLY 0RF Patient Comments: TAKES ON MONDAYS acetaminophen 500 mg Capsule 1,000 mg PO PRN PRN (Reason: Pain) ascorbic acid (vitamin C) 1,000 mg Capsule 1 g PO DAILY hydrochlorothiazide 12.5 mg tablet 12.5 mg PO DAILY Qty: 90 1RF fenofibrate 160 mg tablet 160 mg PO DAILY Qty: 90 3RF testosterone 20.25 mg/1.25 gram (1.62 %) gel in metered-dose pump 1 pump topical DAILY Qty: 75 5RF Rx Instructions: apply 1 pump amount over max area of ONE upper arm and shoulder allopurinol 300 mg tablet 300 mg PO DAILY Qty: 90 3RF insulin glargine-yfgn [Semglee(insulin glarg-yfgn)Pen] 100 unit/mL (3 mL) insulin pen 55 unit subcut QPM Qty: 50 1RF Rx Instructions: if fasting BS >150, pt will inject an additional 20 units Qam metformin 500 mg tablet extended release 24 hr 1,000 mg PO DAILY Qty: 180 3RF perindopril erbumine 8 mg tablet 16 mg PO DAILY Qty: 180 1RF atorvastatin 80 mg tablet 80 mg PO DAILY Qty: 90 1RF
[2024-09-04 07:51] LABS: Basophils Percent Auto 0.3 % (0.2-1.2); Eosinophils Percent Auto 0.2 % (0-4.4); Hematocrit 37.7 % (42.0-52.0); Hemoglobin 12.2 g/dL (14.0-18.0); Immature Granulocyte Absolute 0.06 K/mm3 (0.00-0.031); Immature Granulocyte Percent A 0.7 % (0-0.5); Lymphocytes Absolute Auto 1.89 K/mm3 (0.9-3.2); Lymphocytes Percent Auto 20.9 % (18.3-44.2); Mean Corpuscular HGB Conc 32.4 g/dl (32-36); Mean Corpuscular Hemoglobin 27.7 pg (26-34); Mean Corpuscular Volume 85.7 fl (80-100); Mean Platelet Volume 11.1 fl (7.4-10.4); Neutrophils Absolute Auto 6.1 K/mm3 (1.3-6.7); Neutrophils Percent Auto 66.9 % (45.5-73.1); Platelet Count Result 208 k/mm3 (150-375); Red Cell Distribution Width 13.2 % (11.5-14.5); White Blood Count 9.1 K/mm3 (4.5-10.0)
[2024-09-04 07:57] LABS: Glucose Point of Care 146 mg/dl (65-105)
[2024-09-04 07:58] LABS: Anion Gap 6 mmol/L (4-12); Blood Urea Nitrogen 24 mg/dL (9-20); Calcium 8.8 mg/dL (8.4-10.2); Carbon Dioxide 29 mmol/L (22-30); Chloride 102 mmol/L (98-107); Estimated CRCL calculation 57 ml/min; Estimated Glomerular Filt Rate 55; Glucose 136 mg/dL (65-110); Potassium 3.9 mmol/L (3.4-5.0); Sodium 137 mmol/L (137-145)
[2024-09-04] MEDS: ATORVASTATIN 40 MG TABLET 80 MG PO (08:33)
[2024-09-04] MEDS: CELECOXIB 200 MG CAPSULE PO (08:33)
[2024-09-04] MEDS: polyethylene glycoL 3350 17 GM POWD.PACK PO (08:33)
[2024-09-04] MEDS: allopurinoL 300 MG TABLET PO (08:33)
[2024-09-04] MEDS: hydroCHLOROthiazide 12.5 MG CAPSULE PO (08:33)
[2024-09-04] MEDS: ceFAZolin 2 GM/D5W 50 ML 2 GM/50 ML BAG IVPB (08:33)
[2024-09-04] MEDS: SENNA/DOCUSATE SODIUM TABLET 2 TAB PO (08:33)
[2024-09-04] MEDS: lisinopriL 20 MG TABLET 40 MG PO (08:33)
[2024-09-04 08:50] VITALS: BP 144/81; PULSE 73; RESP 18; TEMP 36.3; O2SAT 98
[2024-09-04] MEDS: HYDROcodone/acetaminophen (*CRX) 7.5-325 MG TABLET 1 TAB PO (09:13)
--- NOTE | 2024-09-04 12:26 | P.PNIM_ITS ---
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 pain control per Orthopedic surgery Prophylactic anticoagulation per Orthopedic DVT prophylaxis on rivaroxaban patient stable for discharge from medical standpoint Subjective Date/time seen: 09/04/24 12:26 Interval history: Patient comfortable at bedside no complaints this morning and blood pressure controlled this morning Patient is stable for discharge from the medical stand point Review of Systems Review of Systems: All other systems reviewed and negative except for the history above. Exam Narrative: General: alert and comfortable Eyes: EOMI, PERRLA ENNT External ears normal, Neck is supple, no masses, Respiratory systems: Clear to auscultation Cardiovascular S1, S2, normal rhythm, no murmur, rub, or gallop; no thrill or palpable murmurs on palpation. Gastrointestinal: soft, non-tender, and non-distended abdomen with no masses; BS present Skin: Right knee wound dressing clean and dry. Musculoskeletal: no abnormality and no tenderness, normal ROM Neurologic: Alert and oriented x3, non focal Mental Status Exam: normal affect Objective Data Vital Signs Vital Signs: Vital Signs - 24 hr 09/03/24 12:35 09/03/24 13:27 09/03/24 12:50 Temperature 96.5 F L Pulse Rate 72 Respiratory Rate 18 Blood Pressure 159/86 H Pulse Oximetry 99 Oxygen Delivery Room Air Room Air 09/03/24 16:50 09/03/24 20:50 09/03/24 23:41 Temperature 97.8 F 97.7 F 97.7 F Pulse Rate 79 74 68 Respiratory Rate 18 16 16 Blood Pressure 177/85 H 149/90 H 145/78 H Pulse Oximetry 98 100 100 Oxygen Delivery 09/04/24 04:47 09/04/24 08:50 09/04/24 08:00 Temperature 97.5 F L 97.3 F L Pulse Rate 67 73 Respiratory Rate 16 18 Blood Pressure 144/78 H 144/81 H Pulse Oximetry 98 98 Oxygen Delivery Room Air Intake/Output Intake/Output: Intake & Output 09/01/24 09/02/24 09/03/24 09/04/24 23:59 23:59 23:59 23:59 Intake Total 980 687 Balance 980 687 Meds/Results Medications: Active Medications Generic Name Dose Route Start Last Admin Trade Name Freq PRN Reason Stop Dose Admin Hydrocodone Bitart/Acetaminophen 1 tab 09/03/24 11:05 Hydrocodone/Acetaminophen (*Crx) 5-325 Mg Tablet PO Q4H PRN Pain Rated 4-6 Hydrocodone Bitart/Acetaminophen 1 tab 09/03/24 11:05 09/04/24 09:13 Hydrocodone/Acetaminophen (*Crx) 7.5-325 Mg Tablet PO 1 tab Q4H PRN Administration Pain Rated 7-10 Allopurinol 300 mg 09/04/24 09:00 09/04/24 08:33 Allopurinol 300 Mg Tablet PO 300 mg DAILY DENA Administration Atorvastatin Calcium 80 mg 09/04/24 09:00 09/04/24 08:33 Atorvastatin 40 Mg Tablet PO 80 mg DAILY DENA Administration Celecoxib 200 mg 09/03/24 17:00 09/04/24 08:33 Celecoxib 200 Mg Capsule PO 200 mg BIDWM DENA Administration Cyclobenzaprine HCl 10 mg 09/03/24 11:05 Cyclobenzaprine Hcl 10 Mg Tablet PO Q8H PRN Spasms Diphenhydramine HCl 25 mg 09/03/24 11:05 Diphenhydramine Hcl Inj 50 Mg/Ml Vial IV PUSH Q6H PRN Itching Hydrochlorothiazide 12.5 mg 09/04/24 09:00 09/04/24 08:33 Hydrochlorothiazide 12.5 Mg Capsule PO 12.5 mg DAILY DENA Administration Hydromorphone HCl 1 mg 09/03/24 11:05 Hydromorphone Hcl Inj (*Crx) 1 Mg/Ml Syr IV PUSH Q2H PRN Breakthrough Pain Rated 7-10 or NPO Hydromorphone HCl 0.5 mg 09/03/24 11:05 Hydromorphone Hcl Inj (*Crx) 1 Mg/Ml Syr IV PUSH Q2H PRN Breakthrough Pain Rated 4-6 or NPO Insulin Glargine 55 units 09/03/24 18:00 09/03/24 17:39 Insulin Glargine (*Bkc) 100 Units/Ml SUB-Q 55 units QPM DENA Administration Lisinopril 40 mg 09/03/24 16:00 09/04/24 08:33 Lisinopril 20 Mg Tablet PO 40 mg QAM DENA Administration Naloxone HCl 0.1 mg 09/03/24 11:05 Naloxone Hcl 0.4 Mg/Ml Vial IV PUSH Q2M PRN Opiate Reversal Ondansetron HCl 4 mg 09/03/24 11:05 Ondansetron Inj 4 Mg/2 Ml Vial IV PUSH Q4H PRN Nausea And Vomiting Polyethylene Glycol 17 gm 09/04/24 09:00 09/04/24 08:33 Polyethylene Glycol 3350 17 Gm Powd.Pack PO 17 gm QAM DENA Administration Rivaroxaban 10 mg 09/03/24 17:00 09/03/24 15:56 Rivaroxaban 10 Mg Tablet PO 09/14/24 17:01 10 mg DAILY@17 DENA Administration Senna/Docusate Sodium 2 tab 09/03/24 17:00 09/04/24 08:33 Senna/Docusate Sodium Tablet PO 2 tab BID DENA Administration Tramadol HCl 50 mg 09/03/24 11:05 09/04/24 03:19 Tramadol Hcl (*Crx) 50 Mg Tablet PO 50 mg Q4H PRN Administration Pain Rated 1-3 Radiology Results: ITS Impressions Knee X-Ray 09/03/24 10:12 IMPRESSION: 1. Right total knee arthroplasty, negative for postoperative purposes. Labs Labs: Laboratory Results - last 24 hr 09/03/24 09/03/24 09/04/24 16:14 20:25 06:37 WBC 9.1 RBC 4.40 L Hgb 12.2 L Hct 37.7 L MCV 85.7 MCH 27.7 MCHC 32.4 RDW 13.2 Plt Count 208 MPV 11.1 H Immature Gran % (Auto) 0.7 H Neut % (Auto) 66.9 Lymph % (Auto) 20.9 [place] % (Auto) 11.0 H Eos % (Auto) 0.2 Baso % (Auto) 0.3 Lymph # (Auto) 1.89 [place] # (Auto) 1.0 H Eos # (Auto) 0.0 Baso # (Auto) 0.0 Abs Immat Gran (auto) 0.06 H Absolute Neuts (auto) 6.1 Absolute Nucleated RBC 0.000 Nucleated RBC % 0.0 Sodium 137 Potassium 3.9 Chloride 102 Carbon Dioxide 29 Anion Gap 6 BUN 24 H Creatinine 1.30 Estim Creat Clear Calc 57 Estimated GFR 55 L Glucose 136 H POC Capillary Glucose 220 H 220 H Calcium 8.8 09/04/24 07:52 WBC RBC Hgb Hct MCV MCH MCHC RDW Plt Count MPV Immature Gran % (Auto) Neut % (Auto) Lymph % (Auto) [place] % (Auto) Eos % (Auto) Baso % (Auto) Lymph # (Auto) [place] # (Auto) Eos # (Auto) Baso # (Auto) Abs Immat Gran (auto) Absolute Neuts (auto) Absolute Nucleated RBC Nucleated RBC % Sodium Potassium Chloride Carbon Dioxide Anion Gap BUN Creatinine Estim Creat Clear Calc Estimated GFR Glucose POC Capillary Glucose 146 H Calcium
== END 2024-09-04 12:12 | disposition home or self-care (01) ==
LOC: ANHSURGERY 07:35 → ANH3MEDSUR 11:23
PROVIDERS: PCP Nurse Practitioner; Visit Provider Orthopaedic Surgery
PROC: (CPT 27447; principal; 2024-09-03 07:30)
DX: M17.11 Unilateral primary osteoarthritis, right knee (principal); G89.18 Other acute postprocedural pain; E11.65 Type 2 diabetes mellitus with hyperglycemia; I10 Essential (primary) hypertension; E78.00 Pure hypercholesterolemia, unspecified; M10.9 Gout, unspecified; E66.9 Obesity, unspecified; Z68.35 Body mass index [BMI] 35.0-35.9, adult; Z79.85 Long-term (current) use of injectable non-insulin antidiabetic drugs; Z79.4 Long term (current) use of insulin; Z79.890 Hormone replacement therapy
CPT/HCPCS: 27447; 64447; 36415; 73560; 80048; 82948; 85025; 97110; 97116; 97161; 97165; 97535; A9270; C1713; C1776; J0171; J0690; J1100; J1815; J1885; J2003; J2250; J2270; J2405; J2704; J2795; J3010; J3370; J7030; J7120

== ENCOUNTER 2025-05-18 11:34 | Outpatient (CLI) | payer OTHER, SELFPAY ==
--- OUTSIDE RECORDS SUMMARY | 2025-05-18 11:51 | XMS_ITS | Encounter Summary ---
Author Organization [facility] Address Formerly [facility], [facility] [place] [address] Care Team Providers Care Fiber Worker Name Role Phone William Rodriguez MD Primary Care Provider Carl CaseC Primary Care Provider [phone] Jonny Block NP Primary Care Provider [phone] Encounter Details Date Type Department Care Team (Late st Contact Info) Description 07/22/2021 Therapy Plan [facility] One Day Services [address] [place], [place] [id number] Shiva Cruz MD [address] [place], [place] [id number] Social History Tobacco Use Types Packs/Day Years Used Date Smoking Tobacco: Never Smokeless Tobacco: Never Alcohol Use Standard Drinks/Week Comments Yes 0 (1 standard drink = 0.6 oz pur e alcohol) Sex and Gender Information Value Date Recorded Sex Assigned at Male 11/05/2024 8:41 AM CARE TRANSITIONS MANAGER Legal Sex Male 5:30 PM CDT Gender Identity Not on file Sexual Orientation Not on file COVID-19 Exposure Response Date Recorded In the last month, have you been in contact with someone who was confirmed or suspected to have Coronavirus / COVID-19? No / Unsure 07/25/2021 2:07 PM CDT documented as of this encounter Functional Status * RETIRED Are you deaf or do you have serious difficulty hearing Answer Date of Assessment Author Status No 07/14/2021 9:00 AM CDT Activ e * RETIRED Are you blind or do you have serious difficulty seeing, even when wearing glasses? Answer Date of Assessment Author Status No 07/14/2021 9:00 AM CDT Activ e * Do you have serious difficulty walking or climbing stairs? Answer Date of Assessment Author Status No 07/14/2021 9:00 AM MATTHIAST Racheal Chang RN Active * Do you have difficulty dressing or bathing? Answer Date of Assessment Author Status No 07/14/2021 9:00 AM MATTHIAST Racheal Chang RN Active * Because of a physical, mental, or emotional condition, do you have difficulty doing errands alone such as visiting a doctor's office or shopping? Answer Date of Assessment Author Status No 07/14/2021 9:00 AM Racheal Flores RN Active documented as of this encounter Mental Status * Because of a physical, mental, or emotional condition, do you have serious difficulty concentrating, remembering, or making decisions? Answer Entry Date Author Status No 07/14/2021 9:00 AM Racheal Flores RN Active documented in this encounter Plan of Treatment Upcoming Encounters Date Type Department Care Team (Late st Contact Info) Description 06/08/2025 10:45 AM CDT Appointment [facility] Outpatient Rehab [address] [place] [address] [place] [address] [place] [address] Sunny Mercado MD [address] [facility] [address] [place] [address] 06/10/2025 8:30 AM CDT Appointment [facility] Outpatient Rehab [address] [place] [address] [place] [address] [place] [address] Sunny Mercado MD [address] [facility] [address] [place] [address] 06/12/2025 8:00 AM CDT Appointment [facility] Outpatient Rehab [address] [place] [address] [place] [address] [place] [address] Mary Jo Castellano, TUBE KNITTER 06/15/2025 8:00 AM CDT Appointment [facility] Outpatient Rehab [address] [place] [address] [place] [address] [place] [address] Mary Jo Castellano, TUBE KNITTER 06/17/2025 8:00 AM CDT Appointment [facility] Outpatient Rehab [address] [place] [address] [place] [address] [place] [address] Mary Jo Castellano, TUBE KNITTER 06/19/2025 10:15 AM CDT Appointment [facility] Outpatient [facility]hab [address] [place] [address] [place] [address] [place] [address] Sunny Mercado MD [address] [facility] [address] [place] [address] documented as of this encounter Goals Goal Patient Goal Type Associated Problems Recent Progress Patient-Stated? Author Return to independent living Diet No Laura Shankar, TAR DISTILLATION SUPERVISOR documented as of this encounter Visit Diagnoses Diagnosis E coli bacteremia- Primary Bacteremia documented in this encounter Care Teams Fiber Worker Relationship Specialty Start Date End Date William Rodriguez MD PCP - General INTERNAL MEDICINE 05/31/20 07/25/21 Carl Bennett PA-C [address] [place] [address] PCP - General PHYSICIAN ASSISTANT MAINTENANCE MANAGER 07/26/21 09/01/24 Jonny Block NP [address] [place] [address] PCP - General NURSE PRACTITIONER 09/02/24 documented as of this encounter
--- OUTSIDE RECORDS SUMMARY | 2025-05-18 11:51 | XMS_ITS | Clinical Summary ---
Author Organization [facility] Address [facility] access hospital[address] [place] [address] Care Team Providers Care Cleaning Handyman Name Role Phone Umair Jonny Rupesh LEVY Primary Care Provider [phone] Allergies No known active allergies Medications atorvastatin 10 MG tablet Take 80 mg by mouth nightly at bedtime. Active Perindopril Erbumine 8 MG Tab Take 2 tablets by mouth nightly. Active allopurinol 300 MG tablet Take 300 mg by mouth daily. Active metFORMIN 500 MG tablet Take 500 mg by mouth daily with breakfast. Active fenofibrate 160 MG tablet Take 160 mg by mouth daily. Active semaglutide 2 MG/1.5ML injection (PEN) Inject 5 mg into the skin every 7 days. Active Active Problems Problem Noted Date Diagnosed Date S/P total knee arthroplasty, right 09/08/2024 E coli bacteremia 07/22/2021 Acute pancreatitis (HHS/HCC) 07/14/2021 Pneumonia due to COVID-19 virus 06/01/2020 Immunizations Immunization Administration Dates Next Due MODERNA COVID-19 (12+) MRNA, LNP-S, PF, 100 MCG/ 0.5 ML DOSE 04/26/2021,03/28/2021 Social History Tobacco Use Types Packs/Day Years Used Date Smoking Tobacco: Never Smokeless Tobacco: Never Alcohol Use Standard Drinks/Week Comments Yes 0 (1 standard drink = 0.6 oz pur e alcohol) Sex and Gender Information Value Date Recorded Sex Assigned at Male 11/05/2024 8:41 AM RIVETER Legal Sex Male 5:30 PM CDT Gender Identity Not on file Sexual Orientation Not on file Last Filed Vital Signs Vital Sign Reading Time Taken Comments Blood Pressure 172/104 08/31/2021 3:50 PM RIVETER Pulse 75 08/31/2021 3:50 PM RIVETER Temperature 36.7 C (98 F) 07/28/2021 1:55 PM CDT Respiratory Rate 12 08/31/2021 3:50 PM RIVETER Oxygen Saturation 98% 08/31/2021 3:50 PM RIVETER Inhaled Oxygen Concentration - - Weight 89.8 kg (198 lb) 08/31/2021 11:42 AM RIVETER Height 177.8 cm (5' 10) 08/31/2021 11:42 AM RIVETER Body Mass Index 28.41 08/31/2021 11:42 AM RIVETER Plan of Treatment Upcoming Encounters Date Type Department Care Team (Late st Contact Info) Description 06/08/2025 10:45 AM CDT Appointment [facility] Outpatient Rehab [address] [place] [address] [place] [address] [place] [address] Sunny Mercado MD [address] [place] [address] 06/10/2025 8:30 AM CDT Appointment [facility] Outpatient Rehab [address] [place] [address] [place] [address] [place] [address] Sunny Mercado MD [address] [facility] [address] [place] [address] 06/12/2025 8:00 AM CDT Appointment [facility] Outpatient Rehab [address] [place] [address] [place] [address] [place] [address] Mary Jo Castellano PTA 06/15/2025 8:00 AM CDT Appointment [facility] Outpatient Rehab [address] [place] [address] [place] [address] [place] [address] Mary Jo Castellano, RADIO INSTALLER AUTOMOBILE 06/17/2025 8:00 AM CDT Appointment [facility] Outpatient Rehab [address] [place] [address] [place] [address] [place] [address] Mary Jo Castellano, RADIO INSTALLER AUTOMOBILE 06/19/2025 10:15 AM CDT Appointment [facility] Outpatient Rehab [address] [place] [address] [place] [address] [place] [address] Sunny Mercado MD [address] [facility] [address] [place] [address] Health Maintenance Due Date Last Done Comments Colorectal Cancer Screening Colonoscopy (10 Years) 1957 DTaP, Tdap and Td Vaccines ( 1 - Tdap) 01/29/1976 Pneumococcal Vaccine: 50+ Years (1 of 1 - PCV) 2007 Zoster Vaccines (3 of 3) 08/02/2018 018, 02/27/2018, 06/02/2017 Annual Medicare Wellness Visit 2022 COVID-19 Vaccine (3 - 2023-2 5 season) 2024 04/26/2021, 03/28/2021 RSV Immunization or 60+ Years (1 - 1-dose 75+ series) 01/29/2032 Hepatitis C Completed 07/17/2021 Meningococcal B Vaccine Aged Out No l onger eligible based on patient's age to complete this topic Meningococcal Vaccine Aged Out No codie francisco javier eligible based on patient's age to complete this topic RSV Immunizations Under 20 Months Aged Out No longer eligible b ased on patient's age to complete this topic Goals Goal Patient Goal Type Associated Problems Recent Progress Patient-Stated? Author Return to independent living Diet No KiasungLaura, PROCUREMENT DIRECTOR Medical Devices Implanted Type Area Wardrobe Specialty Worker Device Identifier Shelf Expiration Date Model / Serial / Lot Stent Advanix Biliary 10f X 7cm - [id number] Implanted:Qty: 1 on 07/18/2021 by Aman Love MBBS at [facility] Stent N/A: Bile Duct [employer] KULWANT biliary stent 05/10/2023 [id number] / / [id number] Advanix Pancreatic Stent Single Pigtail With Leading Alee Implanted:Qty: 1 on 07/18/2021 by Aman Love MBBS at [facility] pancreatic stent 02/26/2022 / / [id number] Procedures Procedure Name Priority Date/Time Associated Diagnosis Comments HEPATITIS PANEL,ACUTE Routine 07/17/2021 6:00 PM CDT from Last 3 Months or Most Recently Relevant to Health Maintenance Results * HEPATITIS PANEL,ACUTE (07/17/2021 6:00 PM CDT) HEPATITIS B SURFACE AG NON-REACT HOSSEIN NON-REACT HOSSEIN 07/17/2021 8:11 PM CDT [facility] Comment:HBsAg NOT DETECTED. HEP B CORE IGM NON-REACT HOSSEIN NON-REACT HOSSEIN 07/17/2021 8:11 PM CDT [facility] Comment: IgM ANTI HBc NOT DETECTED. DOES NOT EXCLUDE THE POSSIBILITY OF EXPOSURE TO OR INFECTION WITH HBV. NO RETEST REQUIRED. HIGH DOSES OF BIOTIN MAY INTERFERE WITH THIS TEST RESULT. CORRELATION TO CLINICAL HISTORY AND PRESENTATION RECOMMENDED. HAV IGM NON-REACT HOSSEIN NON-REACT HOSSEIN 07/17/2021 8:11 PM CDT [facility] Comment: IgM ANTI HAV NOT DETECTED. DOES NOT EXCLUDE THE POSSIBILITY OF EXPOSURE TO OR INFECTION WITH HAV. LEVELS OF IgM ANTI HAV MAY BE BELOW THE CUTOFF IN EARLY INFECTION. HEPATITIS C AB NON-REACT HOSSEIN NON-REACT HOSSEIN 07/17/2021 8:11 PM CDT [facility] Comment: ANTIBODIES TO HCV NOT DETECTED. DOES NOT EXCLUDE THE POSSIBILITY OF EXPOSURE TO HCV. 07/17/2021 6:00 PM CDT us Prisca Mcintosh NP LABORATORY Final Res ult [facility] [address] [place] [address], [id number] from Last 3 Months or Most Recently Relevant to Health Maintenance Insurance [facility] Advance Directives * Full Code (Latest Code Status on File) Date Activated Date Inactivated Comments 07/14/2021 11:05 AM 07/22/2021 4:01 PM * Full Code Date Activated Date Inactivated Comments 06/05/2020 6:27 PM 06/07/2020 6:10 PM Care Teams Cleaning Handyman Relationship Specialty Start Date End Date Jonny Block NP [address] [facility] [address] [place] [address] PCP - General NURSE PRACTITIONER 09/02/24
--- OUTSIDE RECORDS SUMMARY | 2025-05-18 11:51 | XMS_ITS | Encounter Summary ---
Author Organization [facility] Address [facility] [place] [address] Care Team Providers Care Still Tender Name Role Phone Carl Bennett PA-C Primary Care Provider [phone] Jonny Block NP Primary Care Provider [phone] Encounter Details Date Type Department Care Team (Late st Contact Info) Description 07/26/2021 Hospital Follow-up Call [place] [address] [place] [address] Radha Crespo RN Social History Tobacco Use Types Packs/Day Years Used Date Smoking Tobacco: Never Smokeless Tobacco: Never Alcohol Use Standard Drinks/Week Comments Yes 0 (1 standard drink = 0.6 oz pur e alcohol) Sex and Gender Information Value Date Recorded Sex Assigned at Male 11/05/2024 8:41 AM LOADING UNIT OPERATOR POWDER CHARGING Legal Sex Male 5:30 PM CDT Gender Identity Not on file Sexual Orientation Not on file COVID-19 Exposure Response Date Recorded In the last month, have you been in contact with someone who was confirmed or suspected to have Coronavirus / COVID-19? No / Unsure 07/27/2021 1:48 PM CDT documented as of this encounter [...] Author Status No 07/14/2021 9:00 AM CDT Racheal Chang RN Active * Do you have difficulty dressing or bathing? Answer Date of Assessment Author Status No 07/14/2021 9:00 AM CDT Racheal Chang RN Active * Because of a physical, mental, or emotional condition, do you have difficulty doing errands alone such as visiting a doctor's office or shopping? Answer Date of Assessment Author Status No 07/14/2021 9:00 AM CDT Racheal Chang RN Active documented as of this encounter Mental Status * Because of a physical, mental, or emotional condition, do you have serious difficulty concentrating, remembering, or making decisions? Answer Entry Date Author Status No 07/14/2021 9:00 AM CDT Racheal Chang RN Active documented in this encounter Plan of Treatment Upcoming Encounters Date Type Department Care Team (Late st Contact Info) Description 06/08/2025 10:45 AM CDT Appointment [facility] [address] [place] [address] [place] [address] [place] [address] Sunny Mercado MD 4804 [facility] [address] [place] [address] 06/10/2025 8:30 AM CDT Appointment [facility] [address] [place] [address] [place] [address] [place] [address] Sunny Mercado MD 4804 [facility] [address] [place] [address] 06/12/2025 8:00 AM CDT Appointment [facility] [address] [place] [address] [place] [address] [place] [address] Mary Jo Castellano, AQUATIC DIRECTOR 06/15/2025 8:00 AM CDT Appointment [facility] [address] [place] [address] [place] [address] [place] [address] Mary Jo Castellano, AQUATIC DIRECTOR 06/17/2025 8:00 AM CDT Appointment [facility] [address] [place] [address] [place] [address] [place] [address] Mary Jo Castellano, AQUATIC DIRECTOR 06/19/2025 10:15 AM CDT Appointment [facility] [address] [place] [address] [place] [address] [place] [address] Sunny Mercado MD 4804 [facility] [address] [place], [place] [id number] documented as of this encounter Goals Goal Patient Goal Type Associated Problems Recent Progress Patient-Stated? Author Return to independent living Diet No Laura Shankar, INSURANCE TERRITORY MANAGER documented as of this encounter Visit Diagnoses Not on filedocumented in this encounter Care Teams Still Tender Relationship Specialty Start Date End Date Carl Bennett PA-C [address] [place], [place] [id number] PCP - General PHYSICIAN METAL CUT OFF SAW OPERATOR 07/26/21 09/01/24 Jonny Block LEASING AGENT [address] [place] [address] PCP - General NURSE PRACTITIONER 09/02/24 documented as of this encounter
[2025-05-18 12:45] LABS: Hematocrit 45.5 % (42.0-52.0); Hemoglobin 14.9 g/dL (14.0-18.0); Immature Granulocyte Percent A 0.7 % (0-0.5); Lymphocytes Absolute Auto 1.53 K/mm3 (0.9-3.2); Mean Corpuscular HGB Conc 32.7 g/dl (32-36); Mean Corpuscular Hemoglobin 27.9 pg (26-34); Mean Corpuscular Volume 85.0 fl (80-100); Nucleated Red Blood Cells Absolute Auto 0.000 K/mm3 (0.0-0.012); Nucleated Red Blood Cells Perc 0.0 % (0.0-0.2); Platelet Count Result 247 k/mm3 (150-375); Red Blood Count 5.35 M/mm3 (4.6-6.20); White Blood Count 7.7 K/mm3 (4.5-10.0)
[2025-05-18 13:20] LABS: Albumin Level 4.3 g/dL (3.5-5.1)
[2025-05-18 14:11] LABS: MRSA (PCR) NOT DETECTED (NOT DETECTE)
== END 2025-05-18 11:35 | disposition home or self-care (01) ==
LOC: ANHSURGERY 11:38
PROVIDERS: PCP Nurse Practitioner; Visit Provider Orthopaedic Surgery
DX: Z01.812 Encounter for preprocedural laboratory examination (principal); M17.12 Unilateral primary osteoarthritis, left knee
CPT/HCPCS: 80307; 82040; 85025; 87641

== ENCOUNTER 2025-05-20 07:39 | Outpatient (CLI) | payer OTHER, SELFPAY ==
--- OUTSIDE RECORDS SUMMARY | 2025-05-20 07:46 | XMS_ITS | Encounter Summary ---
Author Organization [facility] Address [facility] [place] [address] Care Team Providers Care Manager Restaurant Name Role Phone William Rodriguez MD Primary Care Provider Carl CaseC Primary Care Provider [phone] Jonny Block NP Primary Care Provider [phone] Encounter Details Date Type Department Care Team (Late st Contact Info) Description 07/22/2021 Therapy Plan [facility] Day Services [address] [place], [place] [id number] Shiva Cruz MD [address] [place], [place] [id number] Social History Tobacco Use Types Packs/Day Years Used Date Smoking Tobacco: Never Smokeless Tobacco: Never Alcohol Use Standard Drinks/Week Comments Yes 0 (1 standard drink = 0.6 oz pur e alcohol) Sex and Gender Information Value Date Recorded Sex Assigned at Male 11/05/2024 8:[address] SQL DEVELOPER Legal Sex Male 5:30 PM CDT Gender [...] Info) Description 06/08/2025 10:45 AM CDT Appointment [facility] Outpatient Rehab [address] [place] [address] [place] [address] [place] [address] Sunny Mercado MD [address] [facility] [address] [place] [address] 06/10/2025 8:30 AM CDT Appointment [facility] Outpatient [facility]hab [address] [place] [address] [place] [address] [place] [address] Sunny Mercado MD 480[address] [facility] [address] [place] [address] 06/12/2025 8:00 AM CDT Appointment [facility] [address] [place] [address] [place] [address] [place] [address] Mary Jo Castellano, CANDY MAKER 06/15/2025 8:00 AM CDT Appointment [facility] [address] [place] [address] [place] [address] [place] [address] Mary Jo Castellano, CANDY MAKER 06/17/2025 8:00 AM CDT Appointment [facility] [address] [place] [address] [place] [address] [place] [address] Mary Jo Castellano, CANDY MAKER 06/19/2025 10:15 AM CDT Appointment [facility] [address] [place] [address] [place] [address] [place] [address] Sunny Mercado MD [address] [place] [address] [address] [place] [address] 06/24/2025 10:30 AM CDT Appointment [facility] [address] [place] [address] Sunny Mercado MD [facility] [address] [place] [address] Mary Jo Castellano, CANDY MAKER 06/29/2025 10:30 AM CDT Appointment [facility] [address] [place] [address] Sunny Mercado MD [address] [facility] [address] [place] [address] Mary Jo Castellano, CANDY MAKER 07/01/2025 10:30 AM CDT Appointment [facility] [address] [place] [address] Sunny Mercado MD [address] [facility] [address] [place] [address] Mary Jo Castellano, CANDY MAKER 07/03/2025 11:00 AM CDT Appointment [facility] [address] [place] [address] [place] [address] [place] [address] 07/06/2025 10:30 AM CDT Appointment [facility] [address] [place] [address] Sunny Mercado MD [address] [place] [address] [address] [place] [address] Mary Jo Castellano, CANDY MAKER 07/08/2025 10:30 AM CDT Appointment [facility] [address] [place] [address] Sunny Mercado MD [address] [facility] [address] [place] [address] Mary Jo Castellano, CANDY MAKER 07/10/2025 10:30 AM CDT Appointment [facility] [address] [place] [address] Sunny Mercado MD [facility] [address] [place] [address] Mary Jo Castellano PTA documented as of this encounter Goals Goal Patient Goal Type Associated Problems Recent Progress Patient-Stated? Author Return to independent living Diet No Laura Shankar, ADMINISTRATIVE ASSISTANT COORDINATOR documented as of this encounter Visit Diagnoses Diagnosis E coli bacteremia- Primary Bacteremia documented in this encounter Care Teams Manager Restaurant Relationship Specialty Start Date End Date William Rodriguez MD PCP - General INTERNAL MEDICINE 05/31/20 07/25/21 Carl Bennett PAIjeomaC [address] [place] [address] PCP - General PHYSICIAN RECEIVABLE MANAGER 07/26/21 09/01/24 Jonny Block NP [address] [place] [address] PCP - General NURSE PRACTITIONER 09/02/24 documented as of this encounter
--- OUTSIDE RECORDS SUMMARY | 2025-05-20 07:46 | XMS_ITS | Clinical Summary ---
Author Organization [facility] Address [facility] [place] [address] Care Team Providers Care Wool Sampler Name Role Phone Umair Jonny Rupesh LEVY Primary Care Provider [phone] Allergies No known active allergies Medications atorvastatin [...] Sex Assigned at Male 11/05/2024 8:41 AM CHILD DEVELOPMENT SPECIALIST Legal Sex Male 5:30 PM CDT Gender Identity Not on file Sexual Orientation Not on file Last Filed Vital Signs Vital Sign Reading Time Taken Comments Blood Pressure 172/104 08/31/2021 3:50 PM CHILD DEVELOPMENT SPECIALIST Pulse 75 08/31/2021 3:50 PM CHILD DEVELOPMENT SPECIALIST Temperature 36.7 C (98 F) 07/28/2021 1:55 PM CDT Respiratory Rate 12 08/31/2021 3:50 PM CHILD DEVELOPMENT SPECIALIST Oxygen Saturation 98% 08/31/2021 3:50 PM CHILD DEVELOPMENT SPECIALIST Inhaled Oxygen Concentration - - Weight 89.8 kg (198 lb) 08/31/2021 11:42 AM CHILD DEVELOPMENT SPECIALIST Height 177.8 cm (5' 10) 08/31/2021 11:42 AM CHILD DEVELOPMENT SPECIALIST Body Mass Index 28.41 08/31/2021 11:42 AM CHILD DEVELOPMENT SPECIALIST Plan of Treatment Upcoming Encounters Date Type Department Care Team (Late st Contact Info) Description 06/08/2025 10:[address] [facility] [address] [place] [address] [place] [address] [place] [address] Sunny Mercado MD [address] [place] [address] 06/10/2025 8:[address] [facility] [address] [place] [address] [place] [address] [place] [address] Sunny Mercado MD [address] [facility] [address] [place] [address] 06/12/2025 8:[address] [facility] [address] [place] [address] [place] [address] [place] [address] Mary Jo Castellano PTA 06/15/2025 8:00 AM CDT Appointment [facility] [address] [place] [address] [place] [address] [place] [address] Mary Jo Castellano, PHONE OPERATOR 06/17/2025 8:00 AM CDT Appointment [facility] [address] [place] [address] [place] [address] [place] [address] Mary Jo Castellano, YOHANA 06/19/2025 10:15 AM CDT Appointment [facility] [address] [place] [address] [place] [address] [place] [address] Sunny Mercado MD [address] [place] [address] [address] [place] [address] 06/24/2025 10:30 AM CDT Appointment [facility] [address] [place] [address] Sunny Mercado MD [address] [place] [address] [address] [place] [address] Mary Jo Castellano, PHONE OPERATOR 06/29/2025 10:30 AM CDT Appointment [facility] [address] [place] [address] Sunny Mercado MD [address] [place] [address] [address] [place] [address] Mary Jo Castellano, PHONE OPERATOR 07/01/2025 10:30 AM CDT Appointment [facility] [address] [place] [address] Sunny Mercado MD [facility] [address] [place] [address] Mary Jo Castellano PTA 07/03/2025 11:00 AM CDT Appointment [facility] [address] [place] [address] [place] [address] [place] [address] 07/06/2025 10:30 AM CDT Appointment [facility] [address] [place] [address] Sunny Mercado MD [address] [place] [address] [address] [place] [address] Mary Jo Castellano PTA 07/08/2025 10:[address] [facility] [address] [place] [address] Sunny Mercado MD [address] [place] [address] [address] [place] [address] Mary Jo Castellano PTA 07/10/2025 10:30 AM CDT Appointment [facility] [address] [place] [address] Sunny Mercado MD [facility] [facility] [address] [place] [address] Mary Jo Castellano, PHONE OPERATOR Health Maintenance Due Date Last Done Comments [...] to independent living Diet No Laura Shankar, SEED ANALYSIS LABORATORY ASSISTANT Medical Devices Implanted Type Area Bat Person Device Identifier Shelf Expiration Date Model / Serial / Lot Stent Advanix Biliary 10f X 7cm - [id number] Implanted:Qty: 1 on 07/18/2021 by Aman Love MBBS at [facility] Stent N/A: Bile Duct SonoPlot KULWANT biliary stent 05/10/2023 [id number] / / [id number] Advanix Pancreatic Stent Single Pigtail With Leading Alee Implanted:Qty: 1 on 07/18/2021 by Aman Love MBBS at [facility] pancreatic stent 02/26/2022 / / [id number] Procedures Procedure Name Priority Date/Time Associated Diagnosis Comments HEPATITIS PANEL,ACUTE Routine 07/17/2021 6:00 PM CDT from Last 3 Months or Most Recently Relevant to Health Maintenance Results * HEPATITIS PANEL,ACUTE (07/17/2021 6:00 PM CDT) HEPATITIS B SURFACE AG NON-REACT HOSSEIN NON-REACT HOSSEIN 07/17/2021 8:11 PM CDT [facility] Comment:HBsAg NOT DETECTED. HEP B CORE IGM NON-REACT HOSSEIN NON-REACT HOSSEIN 07/17/2021 8:11 PM CDT [facility] Comment: IgM ANTI HBc NOT DETECTED. DOES NOT EXCLUDE THE POSSIBILITY OF EXPOSURE TO OR INFECTION WITH HBV. NO RETEST REQUIRED. HIGH DOSES OF BIOTIN MAY INTERFERE WITH THIS TEST RESULT. CORRELATION TO CLINICAL HISTORY AND PRESENTATION RECOMMENDED. HAV IGM NON-REACT HOSSEIN NON-REACT HOSSEIN 07/17/2021 8:11 PM CDT [facility] Comment: IgM ANTI HAV NOT DETECTED. DOES NOT EXCLUDE THE POSSIBILITY OF EXPOSURE TO OR INFECTION WITH HAV. LEVELS OF IgM ANTI HAV MAY BE BELOW THE CUTOFF IN EARLY INFECTION. HEPATITIS C AB NON-REACT HOSSEIN NON-REACT HOSSEIN 07/17/2021 8:11 PM CDT [facility] Comment: ANTIBODIES TO HCV NOT DETECTED. DOES NOT EXCLUDE THE POSSIBILITY OF EXPOSURE TO HCV. 07/17/2021 6:00 PM CDT us Prisca Mcintosh NP LABORATORY Final Res ult [facility] [address] [place] [address], [id number] from Last 3 Months or Most Recently Relevant to Health Maintenance Insurance [employer] Advance Directives * Full Code (Latest Code Status on File) Date Activated Date Inactivated Comments 07/14/2021 11:05 AM 07/22/2021 4:01 PM * Full Code Date Activated Date Inactivated Comments 06/05/2020 6:27 PM 06/07/2020 6:10 PM Care Teams Wool Sampler Relationship Specialty Start Date End Date Jonny Block NP [address] [facility] [address] [place] [address] PCP - General NURSE PRACTITIONER 09/02/24
--- OUTSIDE RECORDS SUMMARY | 2025-05-20 07:46 | XMS_ITS | Encounter Summary ---
Author Organization [facility] Address [facility] [place] [address] Care Team Providers Care Town Planner Name Role Phone Carl Bennett PA-C Primary Care Provider [phone] Jonny Block NP Primary Care Provider [phone] Encounter Details Date Type Department Care Team (Late st Contact Info) Description 07/26/2021 Hospital Follow-up Call [place] [address] [place] [address] Radha Crespo RN Social History Tobacco Use Types Packs/Day Years Used Date Smoking Tobacco: Never Smokeless Tobacco: Never Alcohol Use Standard Drinks/Week Comments Yes 0 (1 standard drink = 0.6 oz pur e alcohol) Sex and Gender Information Value Date Recorded Sex Assigned at Male 11/05/2024 8:41 AM SENIOR WEB ARCHITECT Legal Sex Male 5:30 PM CDT Gender [...] Info) Description 06/08/2025 10:45 AM CDT Appointment [facility] [address] [place] [address] [place] [address] [place] [address] Sunny Mercado MD 4804 [facility] [address] [place] [address] 06/10/2025 8:30 AM CDT Appointment [facility] [address] [place] [address] [place] [address] [place] [address] Sunny Mercado MD 4804 [facility] [address] [place] [address] 06/12/2025 8:00 AM CDT Appointment [facility] [address] [place] [address] [place] [address] [place] [address] Mary Jo Castellano, STEEL FITTER 06/15/2025 8:00 AM CDT Appointment [facility] [address] [place] [address] [place] [address] [place] [address] Mary Jo Castellano, STEEL FITTER 06/17/2025 8:00 AM CDT Appointment [facility] [address] [place] [address] [place] [address] [place] [address] Mary Jo Castellano, STEEL FITTER 06/19/2025 10:15 AM CDT Appointment [facility] [address] [place] [address] [place] [address] [place] [address] Sunny Mercado MD [address] [place] [address] [address] [place] [address] 06/24/2025 10:30 AM CDT Appointment [facility] [address] [place] [address] Sunny Mercado MD [address] [place] [address] [address] [place] [address] Mary Jo Castellano, STEEL FITTER 06/29/2025 10:30 AM CDT Appointment [facility] [address] [place] [address] Sunny Mercado MD [address] [place] [address] [address] [place] [address] Mary Jo Castellano PTA 07/01/2025 10:30 AM CDT Appointment [facility] [address] [place] [address] Sunny Mercado MD [facility] [address] [place] [address] Mary Jo Castellano PTA 07/03/2025 11:00 AM CDT Appointment [facility] [address] [place] [address] [place] [address] [place] [address] 07/06/2025 10:30 AM CDT Appointment [facility] [address] [place] [address] Sunny Mercado MD [address] [place] [address] [address] [place] [address] Mary Jo Castellano PTA 07/08/2025 10:30 AM CDT Appointment [facility] [address] [place] [address] Sunny Mercado MD [address] [place] [address] [address] [place] [address] Mary Jo Castellano PTA 07/10/2025 10:30 AM CDT Appointment [facility] [address] [place] [address] Sunny Mercado MD [address] [place] [address] [address] [place] [address] Mary Jo Castellano PTA documented as of this encounter Goals Goal Patient Goal Type Associated Problems Recent Progress Patient-Stated? Author Return to independent living Diet No Flamm, Laura M, DONOR SERVICES MANAGER documented as of this encounter Visit Diagnoses Not on filedocumented in this encounter Care Teams Town Planner Relationship Specialty Start Date End Date Carl Bennett PA-C [address] [place] [address] PCP - General PHYSICIAN THIRD RIGGER 07/26/21 09/01/24 Jonny Block NP [address] [facility] [address] [place] [address] PCP - General NURSE PRACTITIONER 09/02/24 documented as of this encounter
[2025-05-20 09:02] LABS: Anion Gap 9 mmol/L (4-12); Blood Urea Nitrogen 19 mg/dL (9-20); Calcium 9.2 mg/dL (8.4-10.2); Carbon Dioxide 22 mmol/L (22-30); Chloride 107 mmol/L (98-107); Estimated Glomerular Filt Rate 60; Glucose 160 mg/dL (65-110); Potassium 3.8 mmol/L (3.4-5.0); Sodium 138 mmol/L (137-145)
== END 2025-05-20 07:40 | disposition home or self-care (01) ==
LOC: ANHSURGERY 07:44
PROVIDERS: Anesthesiology; PCP Nurse Practitioner; Visit Provider Orthopaedic Surgery
DX: E11.69 Type 2 diabetes mellitus with other specified complication (principal)
CPT/HCPCS: 36415; 80048

== ENCOUNTER 2025-06-01 00:50 | Day surgery (SDC) | payer OTHER, SELFPAY ==
--- NOTE | 2025-05-18 11:39 | PC.NURSE ---
Report to the Outpatient Waiting Room, entrance under the green pavilion located off [facility], at time _6 am on date _06/01/25 . Planned Procedure Time: 7:30 am .? Time changes happen often and if your time is changed the preop area will call you the afternoon before. - You and your visitor will be asked to self-screen and do not enter if you have any COVID symptoms. Please call surgeon if you need to reschedule. - A mask is optional within the hospital at this time. Patients may have clear liquids (water, carbonated beverages, clear teas, apple juice) until 3 hours prior to surgery ( 4:30 am) with a maximum of 20 ounces. - No food from midnight until time of surgery and no smoking, or chewing tobacco (or any form of nicotine). No chewing gum, candy or mints. - Take only the following medications with a SIP of water on the morning of surgery: ___NONE DO NOT STOP ANY OF YOUR OTHER PRESCRIPTION MEDICATIONS PRIOR TO SURGERY EXCEPT THE FOLLOWING Hold all vitamins and supplements for 3 days per anesthesiologist.LAST DOSE 05/28/25 Medications to discontinue per physician NONE TOTAL JOINT CLASS 05/27/25 AT 10 AM Please no make-up, nail tajik, hairspray, perfume, deodorant, or body powder the day of surgery.? No jewelry (including any body piercings) or valuables the day of surgery, leave them at home.? Please take a shower or bath the night before, or the morning of, surgery with an antibacterial soap.? Wear comfortable, loose fitting clothing.? Children are encouraged to wear pajamas. - Jewelry must be removed prior to entering the operating room.? Rings and piercings that are not removed may be cut off. - The hospital will not accept responsibility for valuables.? - Please leave all valuables, including medications, at home the day of surgery. If you are going home after surgery, a licensed trencher driver must drive you home.? - NO public transportation without another adult if you receive anesthesia. - We recommend that an adult stay with you for 24 hours following discharge. - We also recommend that you do not drive, make important decision, drink alcoholic beverages, or take any drugs that were not prescribed by your health care provider for at least 24 hours after your discharge time. For Pediatric surgeries, we recommend two adults accompany the child home. Follow any additional instructions given to you from your surgeon. VERBALAND WRITTEN instructions given to _PATIENT and asked if any additional questions and then verbalized understanding. Patient advised to call surgeon office or pre surgery nurse liaison [phone] if any additional questions.
[2025-05-18 11:42] VITALS: BMI 36.8
[2025-05-18 12:27] VITALS: BP 151/81; PULSE 79; RESP 18; TEMP 37.4; O2SAT 98
--- NOTE | 2025-05-28 06:59 | P.HP_ITS ---
H&P: HPI History of Present Illness Date/Time: 05/28/25 06:59 Chief Complaint: Patient presents knee pain left. He has an arthritic left knee. He has had pain for years now is to the point where her conservative treatment is no longer effective. He would like to consider knee replacement surgery. Review of Systems Musculoskeletal: Musculoskeletal: Reports arthralgias, Reports joint swelling and Reports stiffness Neurologic: Reports abnormal gait [facility] Past Medical History Medical History Gout High cholesterol Hypertension Colon polyp Diabetes mellitus Surgical History Surgical History History of cholecystectomy Family History Family History Mother Diabetes mellitus Alcoholism Sibling Alcoholism Diabetes mellitus Hypertension Father Hypertension Social History Social History (Updated 04/28/25 @ 07:31 by Caroline Tamez CMA) Smoking status: Never smoker Second hand tobacco smoke exposure: Yes Additional smoking assessment comments: DENIES ANY FORM OF TOBACCO USE Alcohol intake: current Drinks per week: 12 Alcohol use details: BEER Substance use: never Substance use type: does not use Do You Feel Safe in your Home?: Yes Lack of Transportation: No Lack of Food: Never True Current Housing: I Have Housing Concerned About Future Housing: No Difficulty Paying Gas/Electric Bills: No Difficulty Paying for Meds: YES Currently Unemployed: No Education: High School Diploma/GED Difficulty w/ Childcare or Family Care: No Living arrangements: alone Occupation/Education: retired 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[employer] Gender identity (if verbalized by the patient): Male Spiritual care concerns: No Meds Home Medications and Allergies Home Medications ?Medication ?Instructions ?Recorded ?Confirmed ?Type semaglutide 0.25 mg or 0.5 mg (2 0.25 mg or 0.5 mg (2 mg/3 mL) Pen 08/13/24 05/18/25 Sample mg/3 mL) subcutaneous pen injector Injector#4 Samples (Ozempic) acetaminophen 500 mg capsule 1,000 mg PO PRN PRN Pain 08/26/24 05/18/25 History ascorbic acid (vitamin C) 1,000 mg 1 g PO DAILY 08/26/24 05/18/25 History capsule semaglutide 2 mg/dose (8 mg/3 mL) 2 mg (0.75 mL) subcut WEEKLY #3 mL 01/15/25 05/18/25 Rx subcutaneous pen injector (Ozempic) fenofibrate 160 mg tablet 160 mg PO DAILY #90 tabs 01/19/25 05/18/25 Rx perindopril erbumine 8 mg tablet 16 mg (2 x 8 mg) PO DAILY #180 tabs 01/19/25 05/18/25 Rx allopurinol 300 mg tablet 300 mg PO DAILY #90 tabs 01/28/25 05/18/25 Rx atorvastatin 80 mg tablet 80 mg PO DAILY #90 tabs 02/13/25 05/18/25 Rx hydrochlorothiazide 12.5 mg tablet 12.5 mg PO DAILY #90 tabs 02/26/25 05/18/25 Rx safety needles 18 gauge x 1 (Easy #50 ea 03/06/25 04/28/25 Rx Touch FlipLock Needle) syringe with needle 3 mL 21 gauge #100 ea 03/06/25 04/28/25 Rx x 1 1/2 (BD Luer-Kelin Syringe) testosterone cypionate 200 mg/mL 100 mg (0.5 mL) IM WEEKLY #10 mL 03/06/25 05/18/25 Rx intramuscular oil (Depo-Testosterone) metformin 500 mg tablet,extended 1,000 mg (2 x 500 mg) PO DAILY 03/30/25 05/18/25 Rx release 24 hr #180 tabs insulin glargine 100 unit/mL (3 55 unit subcut HS 05/18/25 05/18/25 History mL) subcutaneous pen (Lantus Solostar U-100 Insulin) Allergies Allergy/AdvReac Type Severity Reaction Status Date / Time No Known Allergies Allergy Verified 05/18/25 11:42 Exam Narrative: On exam he has varus deformity both knees he walks with an antalgic gait. His motion is about 3 to 110?. He has pain with manipulation pain with activity. Neurologically appears to be grossly intact. Eyes: General: appearance normal, both eyes and all related structures Neck: Neck: supple Resp: Effort & Inspection: normal respiratory effort Cardio: Rate: regular rate Rhythm: regular rhythm Radiology Reports: Comments: XRay Report Ambulatory Signed Patient: Sohan Marshall Interpretation: AP lateral skyline view of the Left knee demonstrates total knee arthroplasty on the right in excellent alignment. He has dzhv-[id number]-iwbm arthritis of the left knee with varus deformity, spurring, and sclerosis. Please be advised this is a medical document. It is intended for wuqk-fi-iwsm communication. It is written in medical language and may contain unfamiliar abbreviations or verbiage. Medical documents are intended to carry relevant information, facts as evident, and the clinical opinion of the practitioner at the time of the encounter. This report may have been done utilizing a voice recognition system. Attempts have been made to correct errors. However, there may be uncorrected grammatical, spelling, and recognition errors present. The file time of this note does not necessarily represent the time the patient was seen. Documented By: Sunny Mercado MD 04/28/25 0752 Signed By: <Electronically signed by Sunny Mercado MD> 04/28/25 0752 Knee X-Ray 04/28/25 Orthopedics Result Report 04/28/25 Assessment and Plan Assessment and plan (1) Osteoarthritis of left knee: Code(s): M17.12 - Unilateral primary osteoarthritis, left knee Status: Acute Assessment and Plan: Patient is knee pain left. He has an arthritic left knee. He has failed conservative treatment at this time would like to consider knee replacement surgery. I discussed the risks, benefits, limitations, and alternatives with the patient in detail he understands and agrees. He would like to proceed with left total knee arthroplasty. Will proceed per his request.
[2025-06-01] VITALS (13 sets, daily range): BP systolic 132–157; BP diastolic 72–90; PULSE 67–89; RESP 12–20; TEMP 36.1–37.3; O2SAT 94–100
--- NOTE | ~2025-06-01 | XR_ITS ---
EXAMINATION: XR_[id number]_CR DATE: 06/01/2025 10:10 CDT INDICATION: Left total knee arthroplasty TECHNIQUE: 2 views left knee FINDINGS: There is a left total knee arthroplasty in expected position. Subcutaneous gas with fluid and air in the joint and overlying skin desmond are consistent with recent surgery. No evidence of pe riprosthetic fracture. IMPRESSION: 1. Recent left total knee arthroplasty. Reviewed, dictated and finalized at location A.
--- OUTSIDE RECORDS SUMMARY | 2025-06-01 00:53 | XMS_ITS | Clinical Summary ---
Author Organization [facility] Address [facility] [place] [address] Care Team Providers Care Dicer Machine Operator Name Role Phone UmairJonny Rupesh LEVY Primary Care Provider [phone] Allergies No known active allergies Medications atorvastatin [...] Sex Assigned at Male 11/05/2024 8:41 AM TELEGRAPH MESSENGER Legal Sex Male 5:30 PM CDT Gender Identity Not on file Sexual Orientation Not on file Last Filed Vital Signs Vital Sign Reading Time Taken Comments Blood Pressure 172/104 08/31/2021 3:50 PM TELEGRAPH MESSENGER Pulse 75 08/31/2021 3:50 PM TELEGRAPH MESSENGER Temperature 36.7 C (98 F) 07/28/2021 1:55 PM CDT Respiratory Rate 12 08/31/2021 3:50 PM TELEGRAPH MESSENGER Oxygen Saturation 98% 08/31/2021 3:50 PM TELEGRAPH MESSENGER Inhaled Oxygen Concentration - - Weight 89.8 kg (198 lb) 08/31/2021 11:42 AM TELEGRAPH MESSENGER Height 177.8 cm (5' 10) 08/31/2021 11:42 AM TELEGRAPH MESSENGER Body Mass Index 28.41 08/31/2021 11:42 AM TELEGRAPH MESSENGER Plan of Treatment Upcoming Encounters Date Type Department Care Team (Late st Contact Info) Description 06/08/2025 10:45 AM CDT Appointment [facility] [address] [place] [address] [place] [address] [place] [address] Sunny Mercado MD [address] [place] [address] 06/10/2025 8:30 AM CDT Appointment [facility] [address] [place] [address] [place] [address] [place] [address] Sunny Mercado MD 4804 [facility] 159 [facility] 10 [place] [address] 06/12/2025 8:00 AM CDT Appointment [facility] [address] [place] [address] [place] [address] [place] [address] Mary Jo Castellano PTA 06/15/2025 8:00 AM CDT Appointment [facility] [address] [place] [address] [place] [address] [place] [address] Mary Jo Castellano, MANAGER PEOPLE 06/17/2025 8:00 AM CDT Appointment [facility] [address] [place] [address] [place] [address] [place] [address] Mary Jo Castellano, YOHANA 06/19/2025 10:15 AM CDT Appointment [facility] [address] [place] [address] [place] [address] [place] [address] Sunny Mercado MD [address] [place] [address] [address] [place] [address] 06/24/2025 10:30 AM CDT Appointment [facility] [address] [place] [address] Sunny Mercado MD [address] [place] [address] [address] [place] [address] Mary Jo Castellano, MANAGER PEOPLE 06/29/2025 10:30 AM CDT Appointment [facility] [address] [place] [address] Sunny Mercado MD [address] [place] [address] [address] [place] [address] Mary Jo Castellano, MANAGER PEOPLE 07/01/2025 10:30 AM CDT Appointment [facility] [address] [place] [address] Sunny Mercado MD [facility] [address] [place] [address] Mary Jo Castellano PTA 07/03/2025 11:00 AM CDT Appointment [facility] [address] [place] [address] [place] [address] [place] [address] Sunny Mercado MD [facility] [address] [place] [address] 07/06/2025 10:30 AM CDT Appointment [facility] [address] [place] [address] Sunny Mercado MD [facility] [address] [place] [address] Mary Jo Castellano PTA 07/08/2025 10:30 AM CDT Appointment [facility] [address] [place] [address] Sunny Mercado MD [address] [place] [address] [address] [place] [address] Mary Jo Castellano PTA 07/10/2025 10:30 AM CDT Appointment [facility] [address] [place] [address] Sunny Mercado MD [facility] [address] [place] [address] Mary Jo Castellano, MANAGER PEOPLE Health Maintenance Due Date Last Done Comments [...] to independent living Diet No Laura Shankar, HOOP CUTTER Medical Devices Implanted Type Area Toeing Stockings Device Identifier Shelf Expiration Date Model / Serial / Lot Stent Advanix Biliary 10f X 7cm - [id number] Implanted:Qty: 1 on 07/18/2021 by Aman Love MBBS at [facility] Stent N/A: Bile Duct Asseta KULWANT biliary stent 05/10/2023 [id number] / / [id number] Advanix Pancreatic Stent Single Pigtail With Leading Alee Implanted:Qty: 1 on 07/18/2021 by Aman Love MBBS at [facility] pancreatic stent 02/26/2022 / / [id number] Procedures Procedure Name Priority Date/Time Associated Diagnosis Comments HEPATITIS PANEL,ACUTE Routine 07/17/2021 6:00 PM CDT from Last 3 Months or Most Recently Relevant to Health Maintenance Results * HEPATITIS PANEL,ACUTE (07/17/2021 6:00 PM CDT) HEPATITIS B SURFACE AG NON-REACT HOSSEIN NON-REACT HOSSEIN 07/17/2021 8:11 PM CDT [facility] Comment:HBsAg NOT DETECTED. HEP B CORE IGM NON-REACT HOSSEIN NON-REACT HOSSEIN 07/17/2021 8:11 PM CDT [facility] Comment: IgM ANTI HBc NOT DETECTED. DOES NOT EXCLUDE THE POSSIBILITY OF EXPOSURE TO OR INFECTION WITH HBV. NO RETEST REQUIRED. HIGH DOSES OF BIOTIN MAY INTERFERE WITH THIS TEST RESULT. CORRELATION TO CLINICAL HISTORY AND PRESENTATION RECOMMENDED. HAV IGM NON-REACT HOSSEIN NON-REACT HOSSEIN 07/17/2021 8:11 PM CDT [facility] Comment: IgM ANTI HAV NOT DETECTED. DOES NOT EXCLUDE THE POSSIBILITY OF EXPOSURE TO OR INFECTION WITH HAV. LEVELS OF IgM ANTI HAV MAY BE BELOW THE CUTOFF IN EARLY INFECTION. HEPATITIS C AB NON-REACT HOSSEIN NON-REACT HOSSEIN 07/17/2021 8:11 PM CDT [facility] Comment: ANTIBODIES TO HCV NOT DETECTED. DOES NOT EXCLUDE THE POSSIBILITY OF EXPOSURE TO HCV. 07/17/2021 6:00 PM CDT us Prisca Mcintosh [facility] Final Res ult [facility] [address] [place] [address], [id number] from Last 3 Months or Most Recently Relevant to Health Maintenance Insurance [employer] Advance Directives * Full Code (Latest Code Status on File) Date Activated Date Inactivated Comments 07/14/2021 11:05 AM 07/22/2021 4:01 PM * Full Code Date Activated Date Inactivated Comments 06/05/2020 6:27 PM 06/07/2020 6:10 PM Care Teams Dicer Machine Operator Relationship Specialty Start Date End Date Jonny Block NP [address] [facility] 162 [facility] 21 [place] [address] PCP - General NURSE PRACTITIONER 09/02/24
--- OUTSIDE RECORDS SUMMARY | 2025-06-01 00:53 | XMS_ITS | Encounter Summary ---
Author Organization [facility] Address [facility] [place] [address] Care Team Providers Care Test Equipment Mechanic Name Role Phone Carl Bennett PA-C Primary Care Provider [phone] Jonny Block NP Primary Care Provider Encounter Details Date Type Department Care Team (Late st Contact Info) Description 07/26/2021 Hospital Follow-up Call [place] [address] [place] [address] Radha Crespo RN Social History Tobacco Use Types Packs/Day Years Used Date Smoking Tobacco: Never Smokeless Tobacco: Never Alcohol Use Standard Drinks/Week Comments Yes 0 (1 standard drink = 0.6 oz pur e alcohol) Sex and Gender Information Value Date Recorded Sex Assigned at Male 11/05/2024 8:41 AM PIN STICKER Legal Sex Male 5:30 PM CDT Gender [...] Description 06/08/2025 10:45 AM CDT Appointment [facility] [address] [place] [address] [place] [address] [place] [address] Sunny Mercado MD 4804 [facility] [address] [place] [address] 06/10/2025 8:30 AM CDT Appointment [facility] [address] [place] [address] [place] [address] [place] [address] Sunny Mercado MD 4804 [facility] [address] [place] [address] 06/12/2025 8:00 AM CDT Appointment [facility] [address] [place] [address] [place] [address] [place] [address] Mary Jo Castellano, CYTOLOGY TECHNOLOGIST 06/15/2025 8:00 AM CDT Appointment [facility] [address] [place] [address] [place] [address] [place] [address] Mary Jo Castellano, CYTOLOGY TECHNOLOGIST 06/17/2025 8:00 AM CDT Appointment [facility] [address] [place] [address] [place] [address] [place] [address] Mary Jo Castellano, CYTOLOGY TECHNOLOGIST 06/19/2025 10:15 AM CDT Appointment [facility] [address] [place] [address] [place] [address] [place] [address] Sunny Mercado MD [address] [place] [address] [address] [place] [address] 06/24/2025 10:30 AM CDT Appointment [facility] [address] [place] [address] Sunny Mercado MD [address] [place] [address] [address] [place] [address] Mary Jo Castellano, CYTOLOGY TECHNOLOGIST 06/29/2025 10:30 AM CDT Appointment [facility] [address] [place] [address] Sunny Mercado MD [address] [place] [address] [address] [place] [address] Mary Jo Castellano, YOHANA 07/01/2025 10:30 AM CDT Appointment [facility] [address] [place] [address] Sunny Mercado MD [facility]4 [facility] [address] [place] [address] Mary Jo Castellano, CYTOLOGY TECHNOLOGIST 07/03/2025 11:00 AM CDT Appointment [facility] [address] [place] [address] [place] [address] [place] [address] Sunny Mercado MD [address] [place] [address] [address] [place] [address] 07/06/2025 10:30 AM CDT Appointment [facility] [address] [place] [address] Sunny Mercado MD [address] [place] [address] [address] [place] [address] Mary Jo Castellano PTA 07/08/2025 10:30 AM CDT Appointment [facility] [address] [place] [address] Sunny Mercado MD [facility]4 [facility] [address] [place] [address] Mary Jo Castellano, CYTOLOGY TECHNOLOGIST 07/10/2025 10:30 AM CDT Appointment [facility] [address] [place] [address] Sunny Mercado MD [facility] [address] [place] [address] Mary Jo Castellano PTA documented as of this encounter Goals Goal Patient Goal Type Associated Problems Recent Progress Patient-Stated? Author Return to independent living Diet No Laura Shankar, FLIGHT INFORMATION EXPEDITER documented as of this encounter Visit Diagnoses Not on filedocumented in this encounter Care Teams Test Equipment Mechanic Relationship Specialty Start Date End Date Carl Bennett PA-C [address] [place], [place] [id number] PCP - General PHYSICIAN DYED RAW STOCK BLOWER FEEDER 07/26/21 09/01/24 Jonny Block NP [address] [place] [address] PCP - General NURSE PRACTITIONER 09/02/24 documented as of this encounter
--- OUTSIDE RECORDS SUMMARY | 2025-06-01 00:53 | XMS_ITS | Encounter Summary ---
Author Organization [facility] Address [facility] [place] [address] Care Team Providers Care Mail Handler Sorter Name Role Phone iWlliam Rodriguez MD Primary Care Provider Carl CaseC Primary Care Provider [phone] Jonny Block NP Primary Care Provider [phone] Encounter Details Date Type Department Care Team (Late st Contact Info) Description 07/22/2021 Therapy Plan [facility] [address] [place], [place] [id number] Shiva Cruz MD [address] [place], [place] [id number] Social History Tobacco Use Types Packs/Day Years Used Date Smoking Tobacco: Never Smokeless Tobacco: Never Alcohol Use Standard Drinks/Week Comments Yes 0 (1 standard drink = 0.6 oz pur e alcohol) Sex and Gender Information Value Date Recorded Sex Assigned at Male 11/05/2024 8:41 AM MAT MAKER Legal Sex Male 5:30 PM CDT Gender [...] Info) Description 06/08/2025 10:45 AM CDT Appointment [facility] [address] [place] [address] [place] [address] [place] [address] Sunny Mercado MD 4804 [facility] [address] [place] [address] 06/10/2025 8:30 AM CDT Appointment [facility] [address] [place] [address] [place] [address] [place] [address] Sunny Mercado MD 480[address] [facility] [address] [place] [address] 06/12/2025 8:00 AM CDT Appointment [facility] [address] [place] [address] [place] [address] [place] [address] Mary Jo Castellano, BARREL INSPECTOR 06/15/2025 8:00 AM CDT Appointment [facility] [address] [place] [address] [place] [address] [place] [address] Mary Jo Castellano, BARREL INSPECTOR 06/17/2025 8:00 AM CDT Appointment [facility] [address] [place] [address] [place] [address] [place] [address] Mary Jo Castellano, BARREL INSPECTOR 06/19/2025 10:15 AM CDT Appointment [facility] [address] [place] [address] [place] [address] [place] [address] Sunny Mercaod MD [address] [place] [address] [address] [place] [address] 06/24/2025 10:30 AM CDT Appointment [facility] [address] [place] [address] Sunny Mercado MD [facility] [address] [place] [address] Mary Jo Castellano, BARREL INSPECTOR 06/29/2025 10:30 AM CDT Appointment [facility] [address] [place] [address] Sunny Mercado MD [address] [facility] [address] [place] [address] Mary Jo Castellano, YOHANA 07/01/2025 10:30 AM CDT Appointment [facility] [address] [place] [address] Sunny Mercado MD [address] [facility] [address] [place] [address] Mary Jo Castellano, BARREL INSPECTOR 07/03/2025 11:00 AM CDT Appointment [facility] [address] [place] [address] [place] [address] [place] [address] Sunny Mercado MD 480[address] [facility] [address] [place] [address] 07/06/2025 10:30 AM CDT Appointment [facility] [address] [place] [address] Sunny Mercado MD 480[address] [facility] [address] [place] [address] Mary Jo Castellano PTA 07/08/2025 10:30 AM CDT Appointment [facility] [address] [place] [address] Sunny Mercado MD [address] [facility] [address] [place] [address] Mary Jo Castellano, BARREL INSPECTOR 07/10/2025 10:30 AM CDT Appointment [facility] [address] [place] [address] Sunny Mercado MD [address] [facility] [address] [place] [address] Mary Jo Castellano PTA documented as of this encounter Goals Goal Patient Goal Type Associated Problems Recent Progress Patient-Stated? Author Return to independent living Diet No Laura Shankar, CONTRACTS ANALYST documented as of this encounter Visit Diagnoses Diagnosis E coli bacteremia- Primary Bacteremia documented in this encounter Care Teams Mail Handler Sorter Relationship Specialty Start Date End Date William Rodriguez MD PCP - General INTERNAL MEDICINE 05/31/20 07/25/21 Carl Bennett, PA-C [address] [place] [address] PCP - General PHYSICIAN MANAGER ORACLE 07/26/21 09/01/24 Jonny Block, CAM [address] [facility] [address] [place] [address] PCP - General NURSE PRACTITIONER 09/02/24 documented as of this encounter
[2025-06-01] MEDS: VANCOMYCIN 1,500 MG/NS 500 ML BAG 250 MG IVPB (06:45)
[2025-06-01] MEDS: LACTATED RINGERS 1,000 ML 30 ML IV CONT ×2 (06:45→09:41)
--- NOTE | 2025-06-01 06:57 | WPDHPUPDATE1 ---
History and Physical Update Update Date/Time: 06/01/25 06:57 History and Physical has been reviewed, including an updated exam of the patient. There are NO changes in the patient's condition. Risks, benefits, and alternatives have been discussed and questions answered. Patient agrees to proceed with procedure.
[2025-06-01] MEDS: ACETAMINOPHEN 500 MG TABLET 1000 MG PO (07:00)
[2025-06-01] MEDS: TRANEXAMIC ACID 1,000MG/ISO100 1,000 MG/100 ML BAG 200 MG IVPB (07:00)
--- NOTE | 2025-06-01 07:19 | P.PNAN_ITS ---
Anes - Initial Pre Proc Eval Procedure: Operation Date: 06/01/25 07:30 Proposed Procedures p Left Total Knee Arthroplasty - Sunny Mercado MD Date/Time: 06/01/25 07:19 Surgeon: Sunny Mercado MD Pre Op Diagnosis: oa left knee Patient Data Age: 70 Gender: M Height: 1.68 m Weight: 103.6 kg Last Vital Signs Temp 99.3 F 05/18/25 12:27 Pulse 79 05/18/25 12:27 Resp 18 05/18/25 12:27 BP 151/81 H 05/18/25 12:27 Pulse Ox 98 05/18/25 12:27 O2 Del Method Room Air 05/18/25 12:27 Allergies Allergy/AdvReac Type Severity Reaction Status Date / Time No Known Allergies Allergy Verified 06/01/25 06:02 Home Medications ?Medication ?Instructions ?Recorded ?Confirmed ?Type semaglutide 0.25 mg or 0.5 mg (2 0.25 mg or 0.5 mg (2 mg/3 mL) Pen 08/13/24 05/18/25 Sample mg/3 mL) subcutaneous pen injector Injector#4 Samples (Ozempic) acetaminophen 500 mg capsule 1,000 mg PO PRN PRN Pain 08/26/24 05/18/25 History ascorbic acid (vitamin C) 1,000 mg 1 g PO DAILY 08/26/24 05/18/25 History capsule semaglutide 2 mg/dose (8 mg/3 mL) 2 mg (0.75 mL) subcut WEEKLY #3 mL 01/15/25 05/18/25 Rx subcutaneous pen injector (Ozempic) fenofibrate 160 mg tablet 160 mg PO DAILY #90 tabs 01/19/25 05/18/25 Rx perindopril erbumine 8 mg tablet 16 mg (2 x 8 mg) PO DAILY #180 tabs 01/19/25 05/18/25 Rx allopurinol 300 mg tablet 300 mg PO DAILY #90 tabs 01/28/25 05/18/25 Rx atorvastatin 80 mg tablet 80 mg PO DAILY #90 tabs 02/13/25 05/18/25 Rx hydrochlorothiazide 12.5 mg tablet 12.5 mg PO DAILY #90 tabs 02/26/25 05/18/25 Rx safety needles 18 gauge x 1 (Easy #50 ea 03/06/25 04/28/25 Rx Touch FlipLock Needle) syringe with needle 3 mL 21 gauge #100 ea 03/06/25 04/28/25 Rx x 1 1/2 (BD Luer-Kelin Syringe) testosterone cypionate 200 mg/mL 100 mg (0.5 mL) IM WEEKLY #10 mL 03/06/25 05/18/25 Rx intramuscular oil (Depo-Testosterone) metformin 500 mg tablet,extended 1,000 mg (2 x 500 mg) PO DAILY 03/30/25 05/18/25 Rx release 24 hr #180 tabs insulin glargine 100 unit/mL (3 55 unit subcut HS 05/18/25 05/18/25 History mL) subcutaneous pen (Lantus Solostar U-100 Insulin) Laboratory Tests 06/01/25 06/01/25 06:33 07:04 POC Capillary Glucose 109 H mg/dl (65-105) Blood Type Pending Antibody Screen Pending Patient hx anesthesia problems: none Family hx anesthesia problems: none Results Review: All pre-operative results and documents have been reviewed as part of the pre-operative evaluation. [facility], [facility] Past Medical History Medical History Gout High cholesterol Hypertension Colon polyp Diabetes mellitus Surgical History Surgical History History of cholecystectomy Family History Family History Mother Diabetes mellitus Alcoholism Sibling Alcoholism Diabetes mellitus Hypertension Father Hypertension Social History Social History (Updated 04/28/25 @ 07:31 by Caroline Tamez CMA) Smoking status: Never smoker Second hand tobacco smoke exposure: Yes Additional smoking assessment comments: DENIES ANY FORM OF TOBACCO USE Alcohol intake: current Drinks per week: 12 Alcohol use details: BEER Substance use: never Substance use type: does not use Do You Feel Safe in your Home?: Yes Lack of Transportation: No Lack of Food: Never True Current Housing: I Have Housing Concerned About Future Housing: No Difficulty Paying Gas/Electric Bills: No Difficulty Paying for Meds: YES Currently Unemployed: No Education: High School Diploma/GED Difficulty w/ Childcare or Family Care: No Living arrangements: alone Occupation/Education: retired 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 Informed Consent: The patient's anesthetic plan and its attendant risks and benefits were discussed with the patient/family/POA. Questions were solicited and answers provided to the satisfaction of the patient/family/POA.
[2025-06-01] MEDS: ceFAZolin 2 GM in SODIUM CHLORIDE 0.9% IV 50 ML 100 ML IVPB (07:30)
[2025-06-01] MEDS: VANCOMYCIN 1 EACH IVPB (07:30)
--- NOTE | 2025-06-01 07:58 | WPDANESPNB ---
Anes - Peripheral Nerve Block Date/Time: 06/01/25 07:58 I have discussed with the patient/family/POA the placement of a peripheral nerve block for post-operative pain management, including associated risks, benefits, complications, and side effects. Alternative methods of post-operative analgesia were detailed. Questions were solicited and answers provided to the satisfaction of the patient/family/POA. Time-Out: A pre-procedural Time-Out was completed immediately before starting the procedure and confirmed: Patient Identification, Site, Procedure, Patient Position and the Availability of Requisite Equipment. Clinical Indications: Acute post-operative pain management requested by the operative surgeon. Nerve Block Insertion Note Anes-nerve block: adductor canal left Patient position: supine Skin prep: chlorhexidine Needle: 22 gauge, stimulating, insulated echogenic needle. Needle length: 80 mm Technique: ultrasound Injectate: bupivacaine 0.5% with epi 5 mcg/ml (30cc - no epi) Observations: tolerated well Complications: none Procedure start time:: 723 Procedure end time:: 727
[2025-06-01] MEDS: SODIUM CHLORIDE 0.9% IV 37.7 ML, MORPHINE SULFATE INJ (*CRX) 2 MG, ROPivacaine HCL 1% 2... INFILTRATE (08:24)
[2025-06-01] MEDS: TRANEXAMIC ACID 1,000 MG/10 ML AMPUL 1000 MG IV PUSH (09:16)
--- NOTE | 2025-06-01 09:21 | P.OP_ITS ---
Procedure Note - Detailed Date of Procedure 06/01/25 Pre-op Diagnosis Osteoarthritis Left knee Post-op Diagnosis Same Procedure Performed LEFT Total Knee arthroplasty Surgeon Sunny Mercado MD Anesthesia General Indications Pain and Arthritis Description of Procedure The patient was brought to operating room #7. A general anesthetic was administered. Placed on the operating table and sterilely prepped and draped in usual manner. A longitudinal incision was made. Tourniquet inflated to 300 mmHg for a total of 58 minutes. Dissection was carried down to the fascia. Medial parapatellar incision was made and the patella subluxated laterally. P atella cut from 24 to 15 mm. The tibia was cut perpendicular to the long axis and femur cut in 5 degrees of valgus. The components were trialed and the knee was noted to be stable with excellent motion. The soft tissues balanced, hemostasis obtained. All [address], 71 tibia, 65 femur, 37 mm patella, and 10 mm poly. Motion was 0-125 degrees with good stability in both flexion and extension. The wound was closed with #2 Vicryl, 2-0 Vicryl and desmond. [employer] Estimated Blood Loss 200 Drains No Packing No Pathology None sent Complications No immediate complications Condition Stable Disposition PACU [facility] Billing Surgery - Charge Forward: Surgery Billing ([id number] TKA)
[2025-06-01] MEDS: fentaNYL CITRATE INJ (*CRX) 100 MCG/2 ML VIAL 25 MCG IV PUSH ×4 (10:00→10:26)
--- NOTE | 2025-06-01 10:58 | ADMGEN ---
This patient, Sohan Marshall, was admitted to 3 [facility] Surg Room 300-01. Patient/family oriented to hospital policies and general routines including ID bracelet, bed and alarms, visiting hours, pain management, procedures, bathroom and other care routines, personal items, smoking policy, room service/diet, and visiting hours. Information on how to activate the Rapid Response Team has been discussed. Patient/Family are encouraged to report perceived risks to care and to ask questions if they do not understand what they are told or what they should do.
[2025-06-01] MEDS: ATORVASTATIN 40 MG TABLET 80 MG PO (12:30)
[2025-06-01] MEDS: FENOFIBRATE NANOCRYSTALLIZED 145 MG TABLET PO (12:31)
--- NOTE | 2025-06-01 13:09 | P.CONIM_ITS ---
Assessment and Plan Assessment and plan (1) Osteoarthritis of left knee: Code(s): M17.12 - Unilateral primary osteoarthritis, left knee Status: Acute Assessment and Plan: Status post total knee on 06/01/2025 Orthopedics is primary Pain management by Orthopedics Postop antibiotics Xarelto PT OT (2) Essential (primary) hypertension: Code(s): I10 - Essential (primary) hypertension Status: Acute Assessment and Plan: Continue hydrochlorothiazide (3) Diabetes mellitus: Qualifiers: Diabetes mellitus complication status: with hyperglycemia Diabetes mellitus detention insulin use: with detention use Diabetes mellitus type: type 2 Qualified Code(s): E11.65 - Type 2 diabetes mellitus with hyperglycemia; Z79.4 - jail (current) use of insulin Code(s): E11.9 - Type 2 diabetes mellitus without complications Status: Acute Assessment and Plan: Diabetic diet Hold metformin while in hospital Home Lantus and SSI Accu-Cheks a.c. HS (4) Testicular hypofunction: Code(s): E29.1 - Testicular hypofunction Status: Acute Assessment and Plan: Continue home med (5) Chronic kidney disease, stage 3 (moderate): Code(s): N18.3 - Chronic kidney disease, stage 3 (moderate) Status: Acute Assessment and Plan: BMP in the morning HPI Date of Consult Consult date: 06/01/25 Requesting Physician: Sunny Mercado MD Primary Care Provider: Jonny Block APRN Consult Narrative Reason for consult: Medical management Narrative: Sohan Marshall is a 70 year old male with past medical history of gout, hypertension, diabetes osteoarthritis of left knee status post total left knee. Patient seen after OR. Patient has no complaints at this time, he denies postop nausea and vomiting. He states that he has been up to the bathroom. Pain is controlled with medications. Review of Systems Review of Systems: 12 systems were reviewed and are negativ e except for as per HPI. [facility] Past Medical History Medical History Gout High cholesterol Hypertension Colon polyp Diabetes mellitus Surgical History Surgical History History of cholecystectomy Family History Family History Mother Diabetes mellitus Alcoholism Sibling Alcoholism Diabetes mellitus Hypertension Father Hypertension Social History Social History (Updated 04/28/25 @ 07:31 by Caroline Tamez [facility]) Smoking status: Never smoker Second hand tobacco smoke exposure: Yes Additional smoking assessment comments: DENIES ANY FORM OF TOBACCO USE Alcohol intake: current Drinks per week: 12 Alcohol use details: BEER Substance use: never Substance use type: does not use Do You Feel Safe in your Home?: Yes Lack of Transportation: No Lack of Food: Never True Current Housing: I Have Housing Concerned About Future Housing: No Difficulty Paying Gas/Electric Bills: No Difficulty Paying for Meds: No Currently Unemployed: No Education: High School Diploma/GED Difficulty w/ Childcare or Family Care: No Living arrangements: alone Occupation/Education: retired 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[employer] Gender identity (if verbalized by the patient): Male Spiritual care concerns: No Meds Home Medications and Allergies Home Medications ?Medication ?Instructions ?Recorded ?Confirmed ?Type semaglutide 0.25 mg or 0.5 mg (2 0.25 mg or 0.5 mg (2 mg/3 mL) Pen 08/13/24 05/18/25 Sample mg/3 mL) subcutaneous pen injector Injector#4 Samples ([employer]) acetaminophen 500 mg capsule 1,000 mg PO PRN PRN Pain 08/26/24 06/01/25 History ascorbic acid (vitamin C) 1,000 mg 1 g PO DAILY 08/26/24 06/01/25 History capsule semaglutide 2 mg/dose (8 mg/3 mL) 2 mg (0.75 mL) subcut WEEKLY #3 mL 01/15/25 06/01/25 Rx subcutaneous pen injector (Ozempic) fenofibrate 160 mg tablet 160 mg PO DAILY #90 tabs 01/19/25 06/01/25 Rx perindopril erbumine 8 mg tablet 16 mg (2 x 8 mg) PO DAILY #180 tabs 01/19/25 0 06/01/25 Rx allopurinol 300 mg tablet 300 mg PO DAILY #90 tabs 01/28/25 06/01/25 Rx atorvastatin 80 mg tablet 80 mg PO DAILY #90 tabs 02/13/25 06/01/25 Rx hydrochlorothiazide 12.5 mg tablet 12.5 mg PO DAILY #90 tabs 02/26/25 06/01/25 Rx safety needles 18 gauge x 1 (Easy #50 ea 03/06/25 06/01/25 Rx Touch FlipLock Needle) syringe with needle 3 mL 21 gauge #100 ea 03/06/25 06/01/25 Rx x 1 1/2 (BD Luer-Kelin Syringe) testosterone cypionate 200 mg/mL 100 mg (0.5 mL) IM WEEKLY #10 mL 03/06/25 06/01/25 Rx intramuscular oil (Depo-Testosterone) metformin 500 mg tablet,extended 1,000 mg (2 x 500 mg) PO DAILY 03/30/25 06/01/25 Rx release 24 hr #180 tabs insulin glargine 100 unit/mL (3 55 unit subcut HS 05/18/25 06/01/25 History mL) subcutaneous pen (Lantus Solostar U-100 Insulin) Allergies Allergy/AdvReac Type Severity Reaction Status Date / Time No Known Allergies Allergy Verified 06/01/25 11:05 Vital Signs Vital Signs - 24 hr 06/01/25 07:00 06/01/25 09:41 06/01/25 09:55 Temperature 98.3 F 99.1 F Pulse Rate 67 89 83 Respiratory Rate 14 12 16 Blood Pressure 145/84 H 148/86 H 138/72 Pulse Oximetry 97 97 100 Oxygen Delivery Room Air Simple Face Mask Simple Face Mask Oxygen Flow Rate 6 6 06/01/25 10:10 06/01/25 10:25 06/01/25 10:40 Temperature 97.6 F Pulse Rate 81 79 80 Respiratory Rate 18 16 16 Blood Pressure 141/76 H 141/80 H 132/76 Pulse Oximetry 100 94 95 Oxygen Delivery Room Air Room Air Room Air Oxygen Flow Rate 06/01/25 11:05 06/01/25 11:18 06/01/25 11:20 Temperature 97.0 F L 97.2 F L Pulse Rate 78 79 Respiratory Rate 20 20 Blood Pressure 147/85 H 151/76 H Pulse Oximetry 97 95 96 Oxygen Delivery Room Air Oxygen Flow Rate 06/01/25 11:50 06/01/25 12:47 Temperature 97.5 F L 97.6 F Pulse Rate 77 75 Respiratory Rate 20 20 Blood Pressure 151/79 H 157/82 H Pulse Oximetry 97 98 Oxygen Delivery Oxygen Flow Rate Exam Narrative: General: well appearing, appears stated age. HEENT: normocephalic, atraumatic. Mucous membranes moist. EOMI, PERRLA, bilateral sclera anicteric, no conjunctival injection. Neck supple without JVD, lymphadenopathy, or bruit. Respiratory: clear to ascultation bilaterally. No rales/rhonic/wheezes. Cardiovascular: Regular rate and rhythm, normal S1-S2 upon ascultation. No murmurs, rubs, or clicks. PMI is nondisplaced, capillary refill less than 3 second. Abdomen: Soft, round, no pulsatile masses, nondistended and nontender. No rebound, no guarding. No CVA tenderness, no hepatosplenomegaly. Bowel sounds present to all four quadrants. No high pitch or tinkling sounds, resonant to percussion. Extremities: No cyanosis, clubbing, or edema present. Pulses are palpable 2/2. Left lower extremity surgical dressing clean dry intact Neuro: Alert and orientated x 4. PERRLA. Cranial nerves 2-12 intact without focal deficit. Skin: Warm, dry, and intact, without rash, erythema, or lesion. Psych: pleasant, cooperative, normal speech, normal affect, no hallucinations, no dysarthia Quality VTE Prophylaxis VTE prophylaxis: mechanical ordered and pharmacologic ordered Hospitalist MIPS Advance Care Plan I have confirmed that the patient's Advanced Care Plan is present, code status is documented, or surrogate decision maker is listed in patient medical record.: Yes Medication Reconciliation I have utilized all available resources to obtain, update and review the patients current medications (includes all prescriptions, OTC, herbals, cannabis, and nutritional supplements).: Yes
[2025-06-01] MEDS: SENNA/DOCUSATE SODIUM TABLET 2 TAB PO (16:18)
[2025-06-01] MEDS: RIVAROXABAN 10 MG TABLET PO (16:18)
[2025-06-01] MEDS: ceFAZolin 2 GM in DEXTROSE 5% IN WATER 50 ML 100 ML IVPB ×2 (16:18→23:07)
[2025-06-01] MEDS: INSULIN ASPART (*BKC) 100 UNITS/ML SUB-Q ×2 (17:10→20:17)
[2025-06-01] MEDS: INSULIN GLARGINE (*BKC) 100 UNITS/ML 55 UNITS SUB-Q (20:15)
[2025-06-02 00:20] VITALS: BP 145/81; PULSE 85; RESP 18; TEMP 36.8; O2SAT 100
[2025-06-02] MEDS: HYDROcodone/acetaminophen (*CRX) 5-325 MG TABLET 1 TAB PO ×3 (00:31→09:27)
[2025-06-02 04:40] VITALS: BP 165/84; PULSE 80; RESP 16; TEMP 37.1; O2SAT 94
[2025-06-02 06:05] LABS: Hematocrit 38.1 % (42.0-52.0); Hemoglobin 12.7 g/dL (14.0-18.0); Immature Granulocyte Percent A 0.6 % (0-0.5); Lymphocytes Absolute Auto 1.09 K/mm3 (0.9-3.2); Mean Corpuscular HGB Conc 33.3 g/dl (32-36); Mean Corpuscular Hemoglobin 27.9 pg (26-34); Mean Corpuscular Volume 83.6 fl (80-100); Nucleated Red Blood Cells Absolute Auto 0.000 K/mm3 (0.0-0.012); Nucleated Red Blood Cells Perc 0.0 % (0.0-0.2); Platelet Count Result 203 k/mm3 (150-375); Red Blood Count 4.56 M/mm3 (4.6-6.20); White Blood Count 8.4 K/mm3 (4.5-10.0)
[2025-06-02 06:30] LABS: Anion Gap 6 mmol/L (4-12); Blood Urea Nitrogen 28 mg/dL (9-20); Calcium 8.6 mg/dL (8.4-10.2); Carbon Dioxide 26 mmol/L (22-30); Chloride 102 mmol/L (98-107); Estimated CRCL calculation 50 ml/min; Estimated Glomerular Filt Rate 50; Glucose 122 mg/dL (65-110); Potassium 3.3 mmol/L (3.4-5.0); Sodium 134 mmol/L (137-145)
--- NOTE | 2025-06-02 07:16 | P.PNOP_ITS ---
Progress Note: A&P Assessment and Plan (1) History of knee replacement procedure of left knee: Code(s): Z96.652 - Presence of left artificial knee joint Status: Acute Assessment and Plan: Patient is status post total knee arthroplasty left. He is doing well postoperatively. He is ambulating without too much difficulty. The pain is controllable. Neurologically he is intact. I will do therapy today and dismiss this afternoon. If he has any changes or problems he will call. Follow-up in 2 weeks. Subjective Subjective Date/Time Seen: 06/02/25 07:16 Post Op day: 1 Interval history: Patient is postop total knee arthroplasty. Pain is tolerable and he is ambulating well. Review of Systems Musculoskeletal: Musculoskeletal: Reports arthralgias, Reports joint swelling and Reports stiffness Neurologic: Reports abnormal gait Exam Narrative: On exam his incision is clean. Neurologically he is intact. He is able to ambulate with a walker. Radiology Reports: Comments: XRay Report Signed Patient: Sohan Marshall EXAMINATION: [id number] DATE: 06/01/2025 10:10 CDT INDICATION: Left total knee arthroplasty TECHNIQUE: 2 views left knee FINDINGS: There is a left total knee arthroplasty in expected position. Subcutaneous gas with fluid and air in the joint and overlying skin desmond are consistent with recent surgery. No evidence of periprosthetic fracture. IMPRESSION: 1. Recent left total knee arthroplasty. Reviewed, dictated and finalized at location A. Knee X-Ray 06/01/25 Orthopedics Result Report 04/28/25 Objective Data Vital Signs Vital Signs: Vital Signs - 24 hr 06/01/25 09:41 06/01/25 09:55 06/01/25 10:10 Temperature 99.1 F Pulse Rate 89 83 81 Respiratory Rate 12 16 18 Blood Pressure 148/86 H 138/72 141/76 H Pulse Oximetry 97 100 100 Oxygen Delivery Simple Face Mask Simple Face Mask Room Air Oxygen Flow Rate 6 6 06/01/25 10:25 06/01/25 10:40 06/01/25 11:05 Temperature 97.6 F 97.0 F L Pulse Rate 79 80 78 Respiratory Rate 16 16 20 Blood Pressure 141/80 H 132/76 147/85 H Pulse Oximetry 94 95 97 Oxygen Delivery Room Air Room Air Oxygen Flow Rate 06/01/25 11:18 06/01/25 11:20 06/01/25 11:50 Temperature 97.2 F L 97.5 F L Pulse Rate 79 77 Respiratory Rate 20 20 Blood Pressure 151/76 H 151/79 H Pulse Oximetry 95 96 97 Oxygen Delivery Room Air Oxygen Flow Rate 06/01/25 12:47 06/01/25 13:14 06/01/25 14:00 Temperature 97.6 F Pulse Rate 75 Respiratory Rate 20 Blood Pressure 157/82 H Pulse Oximetry 98 Oxygen Delivery Room Air Room Air Oxygen Flow Rate 06/01/25 16:31 06/01/25 19:50 06/01/25 20:00 Temperature 97.0 F L 99 F Pulse Rate 86 89 Respiratory Rate 18 18 Blood Pressure 151/77 H 156/90 H Pulse Oximetry 98 95 Oxygen Delivery Room Air Oxygen Flow Rate 06/02/25 00:20 06/02/25 04:40 Temperature 98.2 F 98.7 F Pulse Rate 85 80 Respiratory Rate 18 16 Blood Pressure 145/81 H 165/84 H Pulse Oximetry 100 94 Oxygen Delivery Oxygen Flow Rate Intake/Output Intake/Output: Intake & Output 05/30/25 05/31/25 06/01/25 06/02/25 23:59 23:59 23:59 23:59 Intake Total 1858 650 Balance 1858 650 Meds/Results Medications: Active Medications Generic Name Dose Route Start Last Admin Trade Name Freq PRN Reason Stop Dose Admin Hydrocodone Bitart/Acetaminophen 1 tab 06/01/25 10:46 06/02/25 04:20 Hydrocodone/Acetaminophen (*Crx) 5-325 Mg Tablet PO 1 tab Q4H PRN Administration Pain Rated 4-6 Hydrocodone Bitart/Acetaminophen 1 tab 06/01/25 10:46 Hydrocodone/Acetaminophen (*Crx) 7.5-325 Mg Tablet PO Q4H PRN Pain Rated 7-10 Allopurinol 300 mg 06/01/25 11:30 06/01/25 12:30 Allopurinol 300 Mg Tablet PO 300 mg DAILY DENA Administration Atorvastatin Calcium 80 mg 08/11/25 11:30 06/01/25 12:30 Atorvastatin 40 Mg Tablet PO 80 mg DAILY DENA Administration Dextrose 12.5 gm 06/01/25 14:12 Dextrose 50% 25 Gm/50 Ml Syringe IV PUSH PRN PRN Hypoglycemia Protocol Diphenhydramine HCl 25 mg 06/01/25 10:46 Diphenhydramine Hcl Inj 50 Mg/Ml Vial IV PUSH Q6H PRN Itching Fenofibrate 145 mg 06/01/25 11:30 06/01/25 12:31 Fenofibrate Nanocrystallized 145 Mg Tablet PO 145 mg QAM DENA Administration Glucagon 1 mg 06/01/25 14:12 Glucagon For Inj 1 Mg Vial IM PRN PRN Hypoglycemia Protocol Glucose 15 gm 06/01/25 14:12 Glucose Oral Gel 15 Gm Of Glucse In 37.5 Gm Tube PO PRN PRN Hypoglycemia Protocol Hydrochlorothiazide 12.5 mg 06/01/25 11:30 06/01/25 12:31 Hydrochlorothiazide 12.5 Mg Capsule PO 12.5 mg DAILY DENA Administration Hydromorphone HCl 1 mg 06/01/25 10:46 Hydromorphone Hcl Inj (*Crx) 1 Mg/Ml Syr IV PUSH Q2H PRN Breakthrough Pain Rated 7-10 or NPO Hydromorphone HCl 0.5 mg 06/01/25 10:46 Hydromorphone Hcl Inj (*Crx) 1 Mg/Ml Syr IV PUSH Q2H PRN Breakthrough Pain Rated 4-6 or NPO Cefazolin Sodium 2 gm/ 50 mls @ 100 mls/hr 06/01/25 16:00 06/01/25 23:07 Dextrose IVPB 06/02/25 08:29 100 mls/hr Q8H DENA Administration Ibuprofen 800 mg in 200 mls @ 400 mls/hr 06/01/25 10:46 Caldolor 800 Mg/200 Ml IVPB Q6H PRN Breakthrough Pain Rated 1-3 or NPO Dextrose 1,000 mls @ 100 mls/hr 06/01/25 14:12 Dextrose 5% 1,000 Ml IVPB PRN PRN Hypoglycemia Protocol Insulin Aspart 2 - 5 units 06/01/25 17:00 06/01/25 17:10 Insulin Aspart (*Bkc) 100 Units/Ml SUB-Q 2 units TIDWM DENA Administration Protocol Insulin Aspart 1 - 2 units 06/01/25 21:00 06/01/25 20:17 Insulin Aspart (*Bkc) 100 Units/Ml SUB-Q 1 units HS [facility] Administration Protocol Insulin Glargine 55 units 06/01/25 21:00 06/01/25 20:15 Insulin Glargine (*Bkc) 100 Units/Ml SUB-Q 55 units HS DENA Administration Naloxone HCl 0.1 mg 06/01/25 10:46 Naloxone Hcl 0.4 Mg/Ml Vial IV PUSH Q2M PRN Opiate Reversal Ondansetron HCl 4 mg 06/01/25 10:46 Ondansetron Inj 4 Mg/2 Ml Vial IV PUSH Q4H PRN Nausea And Vomiting Polyethylene Glycol 17 gm 06/02/25 09:00 Polyethylene Glycol 3350 17 Gm Powd.Pack PO QAM DENA Rivaroxaban 10 mg 06/01/25 17:00 06/01/25 16:18 Rivaroxaban 10 Mg Tablet PO 06/12/25 17:01 10 mg DAILY@17 DENA Administration Senna/Docusate Sodium 2 tab 06/01/25 17:00 06/01/25 16:18 Senna/Docusate Sodium Tablet PO 2 tab BID DENA Administration Tramadol HCl 50 mg 06/01/25 10:46 Tramadol Hcl (*Crx) 50 Mg Tablet PO Q4H PRN Pain Rated 1-3 Radiology Results: ITS Impressions Knee X-Ray 06/01/25 10:10 IMPRESSION: 1. Recent left total knee arthroplasty. Labs Labs: Laboratory Results - last 24 hr 06/01/25 06/01/25 06/01/25 06:33 09:44 11:19 WBC RBC Hgb Hct MCV MCH MCHC RDW Plt Count MPV Immature Gran % (Auto) Neut % (Auto) Lymph % (Auto) [place] % (Auto) Eos % (Auto) Baso % (Auto) Lymph # (Auto) [place] # (Auto) Eos # (Auto) Baso # (Auto) Abs Immat Gran (auto) Absolute Neuts (auto) Absolute Nucleated RBC Nucleated RBC % Sodium Potassium Chloride Carbon Dioxide Anion Gap BUN Creatinine Estim Creat Clear Calc Estimated GFR Glucose POC Capillary Glucose 143 H 188 H Calcium Blood Type A Positive Antibody Screen Negative 06/01/25 06/01/25 06/02/25 16:33 19:56 05:22 WBC 8.4 RBC 4.56 L Hgb 12.7 L Hct 38.1 L MCV 83.6 MCH 27.9 MCHC 33.3 RDW 13.2 Plt Count 203 MPV 10.7 H Immature Gran % (Auto) 0.6 H Neut % (Auto) 75.9 H Lymph % (Auto) 13.1 L [place] % (Auto) 10.2 H Eos % (Auto) 0.1 Baso % (Auto) 0.1 L Lymph # (Auto) 1.09 [place] # (Auto) 0.9 H Eos # (Auto) 0.0 Baso # (Auto) 0.0 Abs Immat Gran (auto) 0.05 H Absolute Neuts (auto) 6.3 Absolute Nucleated RBC 0.000 Nucleated RBC % 0.0 Sodium 134 L Potassium 3.3 L Chloride 102 Carbon Dioxide 26 Anion Gap 6 BUN 28 H Creatinine 1.42 H Estim Creat Clear Calc 50 Estimated GFR 50 L Glucose 122 H POC Capillary Glucose 218 H 225 H Calcium 8.6 Blood Type Antibody Screen
[2025-06-02] MEDS: ATORVASTATIN 40 MG TABLET 80 MG PO (07:33)
[2025-06-02] MEDS: traMADol HCL (*CRX) 50 MG TABLET PO (07:33)
[2025-06-02] MEDS: ceFAZolin 2 GM in DEXTROSE 5% IN WATER 50 ML 100 ML IVPB (07:33)
[2025-06-02] MEDS: FENOFIBRATE NANOCRYSTALLIZED 145 MG TABLET PO (07:34)
[2025-06-02] MEDS: SENNA/DOCUSATE SODIUM TABLET 2 TAB PO (07:34)
[2025-06-02 08:00] VITALS: O2SAT 97
[2025-06-02 08:08] VITALS: BP 139/90; PULSE 71; RESP 18; TEMP 36.9; O2SAT 97
--- NOTE | 2025-06-02 08:42 | P.CONIM_ITS ---
Assessment and Plan Assessment and plan (1) Osteoarthritis of left knee: Code(s): M17.12 - Unilateral primary osteoarthritis, left knee Status: Acute Assessment and Plan: Status post total knee on 06/01/2025 Orthopedics is primary Pain management by Orthopedics Postop antibiotics Xarelto PT OT / L06/02/25: * Discharge today from care by Medicine Service. All orthopedic management per orthopedic service. 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 HS 06/02/25: * Continue home medication regimen. * Discussed with patient the need for good control of diabetes to ensure healing from surgery (4) Testicular hypofunction: Code(s): E29.1 - Testicular hypofunction Status: Acute Assessment and Plan: Continue home med 06/02/25: * Continue home medications needed (5) Chronic kidney disease, stage 3 (moderate): Code(s): N18.3 - Chronic kidney disease, stage 3 (moderate) Status: Acute Assessment and Plan: BMP in the morning 06/02/25: * Stable renal function with creatinine of 1.42 and BUN 28. Plan Medicine signs off HPI Date of Consult Consult date: 06/02/25 Requesting Physician: Sunny Mercado MD Primary Care Provider: Jonny Block APRN Consult Narrative Reason for consult: Medicine consult Narrative: Sohan Marshall is a 70 year old male with past medical history of gout, hypertension, diabetes mellitus and osteoarthritis who is status post left total knee arthroplasty by Dr. Mercado. Medicine service was consulted on to medical management during hospitalization. Patient has had a fever postoperative course thus far without any exacerbation of his chronic medical conditions. Patient states his pain is well controlled and he has no other acute complaints. Patient is being discharged today by Ortho and medicine has no objections and will sign off of care. Review of Systems 2 Review of Systems: All systems reviewed & are unremarkable except as noted in HPI and below PMFSH Past Medical History Medical History Gout High cholesterol Hypertension Colon polyp Diabetes mellitus Surgical History Surgical History History of cholecystectomy Family History Family History Mother Diabetes mellitus Alcoholism Sibling Alcoholism Diabetes mellitus Hypertension Father Hypertension Social History Social History (Updated 04/28/25 @ 07:31 by Caroline Tamez CMA) Smoking status: Never smoker Second hand tobacco smoke exposure: Yes Additional smoking assessment comments: DENIES ANY FORM OF TOBACCO USE Alcohol intake: current Drinks per week: 12 Alcohol use details: BEER Substance use: never Substance use type: does not use Do You Feel Safe in your Home?: Yes Lack of Transportation: No Lack of Food: Never True Current Housing: I Have Housing Concerned About Future Housing: No Difficulty Paying Gas/Electric Bills: No Difficulty Paying for Meds: No Currently Unemployed: No Education: High School Diploma/GED Difficulty w/ Childcare or Family Care: No Living arrangements: alone Occupation/Education: retired 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[employer] Gender identity (if verbalized by the patient): Male Spiritual care concerns: No Meds Home Medications and Allergies Home Medications ?Medication ?Instructions ?Recorded ?Confirmed ?Type semaglutide 0.25 mg or 0.5 mg (2 0.25 mg or 0.5 mg (2 mg/3 mL) Pen 08/13/24 05/18/25 Sample mg/3 mL) subcutaneous pen injector Injector#4 Samples (OzempVanderdroid) acetaminophen 500 mg capsule 1,000 mg PO PRN PRN Pain 08/26/24 06/01/25 History ascorbic acid (vitamin C) 1,000 mg 1 g PO DAILY 08/26/24 06/01/25 History capsule semaglutide 2 mg/dose (8 mg/3 mL) 2 mg (0.75 mL) subcut WEEKLY #3 mL 01/15/25 06/01/25 Rx subcutaneous pen injector (Ozempic) fenofibrate 160 mg tablet 160 mg PO DAILY #90 tabs 01/19/25 06/01/25 Rx perindopril erbumine 8 mg tablet 16 mg (2 x 8 mg) PO DAILY #180 tabs 01/19/25 06/01/25 Rx allopurinol 300 mg tablet 300 mg PO DAILY #90 tabs 01/28/25 06/01/25 Rx atorvastatin 80 mg tablet 80 mg PO DAILY #90 tabs 02/13/25 06/01/25 Rx hydrochlorothiazide 12.5 mg tablet 12.5 mg PO DAILY #90 tabs 02/26/25 06/01/25 Rx safety needles 18 gauge x 1 (Easy #50 ea 03/06/25 06/01/25 Rx Touch FlipLock Needle) syringe with needle 3 mL 21 gauge #100 ea 03/06/25 06/01/25 Rx x 1 1/2 (BD Luer-Kelin Syringe) testosterone cypionate 200 mg/mL 100 mg (0.5 mL) IM WEEKLY #10 mL 03/06/25 06/01/25 Rx intramuscular oil (Depo-Testosterone) metformin 500 mg tablet,extended 1,000 mg (2 x 500 mg) PO DAILY 03/30/25 06/01/25 Rx release 24 hr #180 tabs insulin glargine 100 unit/mL (3 55 unit subcut HS 05/18/25 06/01/25 History mL) subcutaneous pen (Lantus Solostar U-100 Insulin) doxycycline hyclate 100 mg tablet 100 mg PO DAILY #10 tabs 06/02/25 Rx hydrocodone 7.5 mg-acetaminophen 1 tablet PO Q4H PRN pain #40 tabs 06/02/25 Rx 325 mg tablet rivaroxaban 10 mg tablet (Xarelto) 10 mg PO DAILY #14 tabs 06/02/25 Rx Allergies Allergy/AdvReac Type Severity Reaction Status Date / Time No Known Allergies Allergy Verified 06/01/25 11:05 Vital Signs Vital Signs - 24 hr 06/01/25 09:41 06/01/25 09:55 06/01/25 10:10 Temperature 99.1 F Pulse Rate 89 83 81 Respiratory Rate 12 16 18 Blood Pressure 148/86 H 138/72 141/76 H Pulse Oximetry 97 100 100 Oxygen Delivery Simple Face Mask Simple Face Mask Room Air Oxygen Flow Rate 6 6 06/01/25 10:25 06/01/25 10:40 06/01/25 11:05 Temperature 97.6 F 97.0 F L Pulse Rate 79 80 78 Respiratory Rate 16 16 20 Blood Pressure 141/80 H 132/76 147/85 H Pulse Oximetry 94 95 97 Oxygen Delivery Room Air Room Air Oxygen Flow Rate 06/01/25 11:18 06/01/25 11:20 06/01/25 11:50 Temperature 97.2 F L 97.5 F L Pulse Rate 79 77 Respiratory Rate 20 20 Blood Pressure 151/76 H 151/79 H Pulse Oximetry 95 96 97 Oxygen Delivery Room Air Oxygen Flow Rate 06/01/25 12:47 06/01/25 13:14 06/01/25 14:00 Temperature 97.6 F Pulse Rate 75 Respiratory Rate 20 Blood Pressure 157/82 H Pulse Oximetry 98 Oxygen Delivery Room Air Room Air Oxygen Flow Rate 06/01/25 16:31 06/01/25 19:50 06/01/25 20:00 Temperature 97.0 F L 99 F Pulse Rate 86 89 Respiratory Rate 18 18 Blood Pressure 151/77 H 156/90 H Pulse Oximetry 98 95 Oxygen Delivery Room Air Oxygen Flow Rate 06/02/25 00:20 06/02/25 04:40 06/02/25 08:00 Temperature 98.2 F 98.7 F Pulse Rate 85 80 Respiratory Rate 18 16 Blood Pressure 145/81 H 165/84 H Pulse Oximetry 100 94 97 Oxygen Delivery Room Air Oxygen Flow Rate 06/02/25 08:08 Temperature 98.4 F Pulse Rate 71 Respiratory Rate 18 Blood Pressure 139/90 Pulse Oximetry 97 Oxygen Delivery Oxygen Flow Rate Exam 2 Const: General: comfortable and no acute distress Other: Sitting at bedside HENMT: Face/Nose/Sinus: Normal nares present Eyes: General: appearance normal, both eyes and all related structures Neck: Neck: supple and no JVD Lymphatic: lymphadenopathy not noted Resp: Effort & Inspection: normal respiratory effort Auscultation: clear to auscultation bilaterally Cardio: Rate: regular rate Rhythm: regular rhythm Heart sounds: no gallops, no murmurs and no rubs GI: Auscultation: normal bowel sounds Other: Soft, nontender with active bowel sounds Skin: General skin exam: normal color, no rashes or lesions noted and no erythema Other: Active could dressing midline left knee intact without any signs of surrounding hematoma/erythema/bruising. Distal neurovascular status is intact. Neuro: Speech: normal speech Motor exam (neuro): Abnormal motor strength present and Motor abnormalites present Other: No focal deficits. Abnormal motor strength and decreased range of motion to the operative extremity only. Extrem: Other: Postoperative left total knee arthroplasty Psych: Mental Status: mental status grossly normal Affect: normal affect Results Labs 06/02/25 05:22 06/02/25 05:22 Labs: Short CBC 06/02/25 Range/Units 05:22 WBC 8.4 (4.5-10.0) K/mm3 Hgb 12.7 L (14.0-18.0) g/dL Hct 38.1 L (42.0-52.0) % Plt Count 203 (150-375) k/mm3 BMP 06/02/25 05:22 Sodium 134 L Potassium 3.3 L Chloride 102 Carbon Dioxide 26 BUN 28 H Creatinine 1.42 H Glucose 122 H Calcium 8.6 Quality VTE Prophylaxis VTE prophylaxis: pharmacologic ordered
== END 2025-06-02 11:01 | disposition home or self-care (01) ==
LOC: ANHSURGERY 06:10 → ANH3MEDSUR 10:48
PROVIDERS: PCP Nurse Practitioner; Visit Provider Orthopaedic Surgery
PROC: (CPT 27447; principal; 2025-06-01 07:30)
DX: M17.12 Unilateral primary osteoarthritis, left knee (principal); G89.18 Other acute postprocedural pain; E11.22 Type 2 diabetes mellitus with diabetic chronic kidney disease; I12.9 Hypertensive chronic kidney disease with stage 1 through stage 4 chronic kidney disease, or unspecified chronic kidney disease; N18.30 Chronic kidney disease, stage 3 unspecified; E29.1 Testicular hypofunction; E66.9 Obesity, unspecified; Z68.36 Body mass index [BMI] 36.0-36.9, adult; Z79.85 Long-term (current) use of injectable non-insulin antidiabetic drugs; Z79.84 Long term (current) use of oral hypoglycemic drugs; Z79.4 Long term (current) use of insulin; Z90.49 Acquired absence of other specified parts of digestive tract; Z86.0100 Personal history of colon polyps, unspecified
CPT/HCPCS: 64447; 27447; 36415; 73560; 80048; 82948; 85025; 86850; 86900; 86901; 97110; 97116; 97161; 97165; 97530; 97535; J0690; A9270; C1713; C1776; J0166; J1100; J1815; J1885; J2003; J2250; J2270; J2405; J2704; J2795; J3010; J3373; J7120